=== PATIENT | female | born 1990 | race Caucasian/White ===

== ENCOUNTER 2017-02-15 16:33 | Emergency (ER) | payer OTHER ==
[2017-02-15] MEDS ORDERED: SODIUM CHLORIDE 0.9% 1,000 ML IV STA (17:06)
--- NOTE | 2017-02-15 17:15 | ED ---
General Adult HPI - General Source: patient, EMS, RN notes reviewed, old records reviewed Mode of arrival: EMS Limitations: no limitations <Loreto Martin - Last Filed: 02/15/17 18:53> <Ihsan Ruiz - Last Filed: 02/15/17 19:46> - General Chief complaint: Anxiety Stated complaint: Anxiety Time Seen by Provider: 02/15/17 16:57 - History of Present Illness Initial comments: This is a 26-year-old female presenting to the emergency department with chief complaint of right arm and hand numbness and tingling that started approximately an hour ago. Patient reports that she takes at her nurse friend who is known the emergency department with her. Patient reports that she is currently 20 weeks . Patient's friend states that when she got to her house she started have word salad and was unable to have an intelligible conversation. Patient friend states that she is slowly coming out of it. She does state that she seems to be anxious. She denies any headache, chest pain or shortness of breath. She reports that she does not have any further numbness or tingling in her hand at this time. Patient reports that she is currently 20 weeks in her third . She states that she's had previous Occasions with around this time and believes that she seems to be anxious. (Loreto Martin) - Related Data Home Medications Medication Instructions Recorded Confirmed No Known Home Medications [No 02/15/17 02/15/17 Known Home Medications] Allergies Allergy/AdvReac Type Severity Reaction Status Date / Time erythromycin base Allergy Nausea & Verified 02/15/17 17:55 Vomiting Review of Systems ROS Other: All systems not noted in ROS Statement are negative. <Loreto Martin - Last Filed: 02/15/17 18:53> ROS Other: All systems not noted in ROS Statement are negative. <Ihsan Ruiz - Last Filed: 02/15/17 19:46> ROS Statement: Those systems with pertinent positive or pertinent negative responses have been documented in the HPI. Past Medical History Past Medical History: No Reported History History of Any Multi-Drug Resistant Organisms: None Reported Past Surgical History: No Surgical Hx Reported Past Anesthesia/Blood Transfusion Reactions: No Reported Reaction Past Psychological History: Anxiety, Depression Smoking Status: Never smoker Past Alcohol Use History: None Reported Past Drug Use History: None Reported - Past Family History Mother Family Medical History: No Reported History <Tash Martinily - Last Filed: 02/15/17 18:53> General Exam Limitations: no limitations General appearance: alert, in no apparent distress Head exam: Present: atraumatic, normocephalic, normal inspection Eye exam: Present: normal appearance, PERRL, EOMI. Absent: scleral icterus, conjunctival injection, periorbital swelling ENT exam: Present: normal exam, mucous membranes moist Neck exam: Present: normal inspection. Absent: tenderness, meningismus, lymphadenopathy Respiratory exam: Present: normal lung sounds bilaterally. Absent: respiratory distress, wheezes, rales, rhonchi, stridor Cardiovascular Exam: Present: regular rate, normal rhythm, normal heart sounds. Absent: systolic murmur, diastolic murmur, rubs, gallop, clicks GI/Abdominal exam: Present: soft, normal bowel sounds. Absent: distended, tenderness, guarding, rebound, rigid Extremities exam: Present: normal inspection, full ROM, normal capillary refill. Absent: tenderness, pedal edema, joint swelling, calf tenderness Back exam: Present: normal inspection Neurological exam: Present: alert, oriented X3, CN II-XII intact Expanded Patient oriented to: Present: person, place, time Speech: Present: anomia (Patient is having word finding difficulty.). Absent: fluid speech Cranial nerves: EOM's Intact: Normal, Gag Reflex: Normal, Tongue Deviation: Normal, Facial Sensation: Normal Cerebellar function: Finger to Nose: Normal Upper motor neuron: Pronator Drift: Normal Sensory exam: Upper Extremity Light Touch: Normal, Lower Extremity Light Touch: Normal Motor strength exam: RUE: 5, LUE: 5, RLE: 5, LLE: 5 Eye Response: (4) open spontaneously Motor Response: (6) obeys commands Verbal Response: (5) oriented Danny Total: 15 Psychiatric exam: Present: normal affect, normal mood Skin exam: Present: warm, dry, intact, normal color. Absent: rash <Loreto Martin - Last Filed: 02/15/17 18:53> <Ihsan Ruiz - Last Filed: 02/15/17 19:46> - General Exam Comments Initial Comments: 26-year-old female. Patient does appear to be somewhat anxious. (Loreto Martin) Course <Loreto Martin - Last Filed: 02/15/17 18:53> <Ihsan Ruiz - Last Filed: 02/15/17 19:46> Vital Signs 02/15/17 02/15/17 02/15/17 16:35 17:35 18:59 Temperature 97.9 F 98 F Pulse Rate 99 80 80 Respiratory 22 20 20 Rate Blood Pressure 128/81 120/70 115/61 O2 Sat by Pulse 99 99 99 Oximetry - Reevaluation(s) Reevaluation #1: 02/15/17 18:53 Patient was reevaluated and reports that she is much improved. Patient states that she has no headache and is having a normal conversation. She states that she feels 100% better at this time. Because of this is likely related to anxiety. Return parameters were discussed. 02/15/17 18:53 (Loreto Martin) Medical Decision Making - Lab Data Result diagrams: 02/15/17 17:34 02/15/17 17:34 <Loreto Martin - Last Filed: 02/15/17 18:53> - Lab Data Result diagrams: 02/15/17 17:34 02/15/17 17:34 <Ihsan Ruiz - Last Filed: 02/15/17 19:46> - Medical Decision Making 26-year-old female presents the ED chief complaint of numbness and tingling bilateral arms which is shortly resolved, and difficulty with word recognition and slow to respond. Patient states that she has been more anxious lately and she is 20 weeks . Patient is friend reports that she was initially having some word salad. Patient didn't have any focal neurological deficits. Patient appears to be somewhat slow in responding. Patient's NIH scale is 0. Patient's heart tones were 164 and regular. Her BRAID FOLDER is Dr. Healy. This was discussed with Dr. Ruiz. Patient is reevaluated and all symptoms have resolved. Patient is responding normally at this time. Patient has been advised to follow-up with her BRAID FOLDER. We did consult neurology and the on-call BRAID FOLDER doctor neighbor. They agreed patient's symptoms are likely related to anxiety. Patient will be discharged at this time and advised follow-up with her BRAID FOLDER. Return parameters were discussed. (Loreto Martin) 26-year-old female who is currently 20 weeks presenting with bilateral upper extremity numbness and tingling. This was resolved prior to arrival. Symptoms began approximately one hour prior to getting to the emergency department. She was noted by her friends and to have word finding difficulty and some confusion. Patient was anxious at the time. Laboratory studies were reviewed and are unremarkable including normal electrolytes, no signs of urinary tract infection, CBC is unremarkable, heart tones are normal. Case is discussed with OB on-call and is agrees this is likely related to anxiety. Case was also discussed with neurology on-call and given her status and inconsistent exam and findings no further testing will be required at this time. On reevaluation patient's symptoms have completely resolved. She has no headache. She has no chest pain or shortness of breath, speech is normal, neurologic exam is nonfocal. NIH is 0. She is encouraged to follow up with her BRAID FOLDER and if symptoms return she is encouraged to return to the emergency department. Symptoms likely related to anxiety. (Ihsan Ruiz) - Lab Data Lab Results 02/15/17 02/15/17 02/15/17 Range/Units 17:34 17:34 17:34 WBC 5.6 (3.8-10.6) k/uL RBC 3.76 L (3.80-5.40) m/uL Hgb 11.8 (11.4-16.0) gm/dL Hct 32.1 L (34.0-46.0) % MCV 85.3 (80.0-100.0) fL MCH 31.4 (25.0-35.0) pg MCHC 36.8 (31.0-37.0) g/dL RDW 14.5 (11.5-15.5) % Plt Count 168 (150-450) k/uL Neutrophils % 66 % Lymphocytes % 27 % Monocytes % 4 % Eosinophils % 1 % Basophils % 0 % Neutrophils # 3.7 (1.3-7.7) k/uL Lymphocytes # 1.5 (1.0-4.8) k/uL Monocytes # 0.2 (0-1.0) k/uL Eosinophils # 0.1 (0-0.7) k/uL Basophils # 0.0 (0-0.2) k/uL PT (9.0-12.0) sec INR (<1.1) APTT (22.0-30.0) sec Sodium 138 (137-145) mmol/L Potassium 3.7 (3.5-5.1) mmol/L Chloride 108 H (98-107) mmol/L Carbon Dioxide 21 L (22-30) mmol/L Anion Gap 9 mmol/L BUN 9 (7-17) mg/dL Creatinine 0.60 (0.52-1.04) mg/dL Est GFR (MDRD) Af Amer >60 (>60 ml/min/1.73 sqM) Est GFR (MDRD) Non-Af >60 (>60 ml/min/1.73 sqM) Glucose 92 (74-99) mg/dL Calcium 9.0 (8.4-10.2) mg/dL Total Bilirubin 0.3 (0.2-1.3) mg/dL AST 17 (14-36) U/L ALT 25 (9-52) U/L Alkaline Phosphatase 61 (38-126) U/L Total Creatine Kinase 35 (30-135) U/L CK-MB (CK-2) <0.2 (0.0-2.4) ng/mL CK-MB (CK-2) Rel Index Troponin I <0.012 (0.000-0.034) ng/mL Total Protein 6.4 (6.3-8.2) g/dL Albumin 3.7 (3.5-5.0) g/dL Urine Color Urine Appearance (Clear) Urine pH (5.0-8.0) Ur Specific [place] (1.001-1.035) Urine Protein (Negative) Urine Glucose (UA) (Negative) Urine Ketones (Negative) Urine Blood (Negative) Urine Nitrite (Negative) Urine Bilirubin (Negative) Urine Urobilinogen (<2.0) mg/dL Ur Leukocyte Esterase (Negative) Urine Opiates Screen (NotDetected) Ur Oxycodone Screen (NotDetected) Urine Methadone Screen (NotDetected) Ur Propoxyphene Screen (NotDetected) Ur Barbiturates Screen (NotDetected) U Tricyclic Antidepress (NotDetected) Ur Phencyclidine Scrn (NotDetected) Ur Amphetamines Screen (NotDetected) U Methamphetamines Scrn (NotDetected) U Benzodiazepines Scrn (NotDetected) Urine Cocaine Screen (NotDetected) U Marijuana (THC) Screen (NotDetected) 02/15/17 02/15/17 Range/Units 17:34 17:50 WBC (3.8-10.6) k/uL RBC (3.80-5.40) m/uL Hgb (11.4-16.0) gm/dL Hct (34.0-46.0) % MCV (80.0-100.0) fL MCH (25.0-35.0) pg MCHC (31.0-37.0) g/dL RDW (11.5-15.5) % Plt Count (150-450) k/uL Neutrophils % % Lymphocytes % % Monocytes % % Eosinophils % % Basophils % % Neutrophils # (1.3-7.7) k/uL Lymphocytes # (1.0-4.8) k/uL Monocytes # (0-1.0) k/uL Eosinophils # (0-0.7) k/uL Basophils # (0-0.2) k/uL PT 9.8 (9.0-12.0) sec INR 1.0 (<1.1) APTT 22.4 (22.0-30.0) sec Sodium (137-145) mmol/L Potassium (3.5-5.1) mmol/L Chloride (98-107) mmol/L Carbon Dioxide (22-30) mmol/L Anion Gap mmol/L BUN (7-17) mg/dL Creatinine (0.52-1.04) mg/dL Est GFR (MDRD) Af Amer (>60 ml/min/1.73 sqM) Est GFR (MDRD) Non-Af (>60 ml/min/1.73 sqM) Glucose (74-99) mg/dL Calcium (8.4-10.2) mg/dL Total Bilirubin (0.2-1.3) mg/dL AST (14-36) U/L ALT (9-52) U/L Alkaline Phosphatase (38-126) U/L Total Creatine Kinase (30-135) U/L CK-MB (CK-2) (0.0-2.4) ng/mL CK-MB (CK-2) Rel Index Troponin I (0.000-0.034) ng/mL Total Protein (6.3-8.2) g/dL Albumin (3.5-5.0) g/dL Urine Color Yellow Urine Appearance Clear (Clear) Urine pH 6.0 (5.0-8.0) Ur Specific [place] 1.019 (1.001-1.035) Urine Protein Trace H (Negative) Urine Glucose (UA) Negative (Negative) Urine Ketones Negative (Negative) Urine Blood Negative (Negative) Urine Nitrite Negative (Negative) Urine Bilirubin Negative (Negative) Urine Urobilinogen <2.0 (<2.0) mg/dL Ur Leukocyte Esterase Negative (Negative) Urine Opiates Screen Not Detected (NotDetected) Ur Oxycodone Screen Not Detected (NotDetected) Urine Methadone Screen Not Detected (NotDetected) Ur Propoxyphene Screen Not Detected (NotDetected) Ur Barbiturates Screen Not Detected (NotDetected) U Tricyclic Antidepress Not Detected (NotDetected) Ur Phencyclidine Scrn Not Detected (NotDetected) Ur Amphetamines Screen Not Detected (NotDetected) U Methamphetamines Scrn Not Detected (NotDetected) U Benzodiazepines Scrn Not Detected (NotDetected) Urine Cocaine Screen Not Detected (NotDetected) U Marijuana (THC) Screen Not Detected (NotDetected) 02/15/17 18:10 EKG shows normal sinus rhythm. Ventricular rate of 79 bpm. AR interval 134 ms. QRS duration 76 no seconds. QT QTC 374/420 ms. No evidence of ST elevation or T-wave inversion. (Loreto Martin) Disposition Time of Disposition: 18:46 <Loreto Martin - Last Filed: 02/15/17 18:53> <Ihsan Ruiz - Last Filed: 02/15/17 19:46> Clinical Impression: Anxiety, Paresthesia of arm, Acute confusional state Disposition: HOME SELF-CARE Condition: Good Instructions: Generalized Anxiety Disorder (ED) Additional Instructions: Patient advised to follow-up with her BRAID FOLDER and primary care physician. Patient denies to relax and take deep breaths. Patient should return if there are any alarming signs or symptoms that occur. Referrals: None,Stated [Primary Care Provider] - 1-2 days Jackson Healy DO [REFERRING] - 1-2 days
[2017-02-15 17:43] LABS: Basophils % (A) 0 %; CH 31.2; CHCM 36.8; Eosinophils # (A) 0.1 k/uL (0-0.7); Eosinophils % (A) 1 %; HCT 32.1 % (34.0-46.0); HDW 3.17; HGB 11.8 gm/dL (11.4-16.0); Luc % (Auto) 2; Lymphocytes # (A) 1.5 k/uL (1.0-4.8); Lymphocytes % (A) 27 %; MCH 31.4 pg (25.0-35.0); MCHC 36.8 g/dL (31.0-37.0); MCV 85.3 fL (80.0-100.0); Mean Platelet Volume 6.9; Monocytes # (A) 0.2 k/uL (0-1.0); Monocytes % (A) 4 %; Neutrophils # (A) 3.7 k/uL (1.3-7.7); Neutrophils % (A) 66 %; RBC 3.76 m/uL (3.80-5.40); RDW 14.5 % (11.5-15.5); WBC 5.6 k/uL (3.8-10.6); WBC (Perox) 5.96
[2017-02-15 17:54] LABS: ALT 25 U/L (9-52); AST 17 U/L (14-36); Alkaline Phosphatase 61 U/L (38-126); Anion Gap 9 mmol/L; Blood Urea Nitrogen 9 mg/dL (7-17); Carbon Dioxide 21 mmol/L (22-30); Chloride 108 mmol/L (98-107); Glucose 92 mg/dL (74-99); Non-African American GFR(MDRD) >60 (>60 ml/min/1.73 sqM); Potassium 3.7 mmol/L (3.5-5.1); Sodium 138 mmol/L (137-145); Total Bilirubin 0.3 mg/dL (0.2-1.3); Total Protein 6.4 g/dL (6.3-8.2)
[2017-02-15 17:55] LABS: Partial Thromboplastin Time 22.4 sec (22.0-30.0); Prothrombin Time 9.8 sec (9.0-12.0)
[2017-02-15 18:05] LABS: Creatine Kinase 35 U/L (30-135)
[2017-02-15 18:14] LABS: Appearance,Urine Clear (Clear); Bilirubin,Urine Negative (Negative); Glucose,Urine (UA) Negative (Negative); Ketones,Urine Negative (Negative); Leukocyte Esterase,Urine Negative (Negative); Nitrite,Urine Negative (Negative); Protein,Urine Trace (Negative); Specific Gravity,Urine 1.019 (1.001-1.035); UA Billing (MACRO vs. MICRO) CHEM; Urobilinogen,Urine <2.0 mg/dL (<2.0)
[2017-02-15 18:17] LABS: Creatine Kinase MB <0.2 ng/mL (0.0-2.4); Troponin I <0.012 ng/mL (0.000-0.034)
[2017-02-15 19:00] VITALS: PULSE 80; RESP 20
[2017-02-15 19:01] VITALS: BP 115/61; TEMP 98
== END 2017-02-15 19:02 | disposition home or self-care (01) ==
LOC: EC 16:33
DX: O99.342 Other mental disorders complicating pregnancy, second trimester (principal); O99.89 Other specified diseases and conditions complicating pregnancy, childbirth and the puerperium; F41.9 Anxiety disorder, unspecified; R20.2 Paresthesia of skin; R41.0 Disorientation, unspecified; Z3A.20 20 weeks gestation of pregnancy; Z88.1 Allergy status to other antibiotic agents
CPT/HCPCS: 36415; 80053; 80306; 81003; 82550; 82553; 84484; 85025; 85610; 85730; 93005; 96360; 99285

== ENCOUNTER 2017-02-18 11:12 | Emergency (ER) | payer OTHER ==
[2017-02-18] MEDS ORDERED: SODIUM CHLORIDE 0.9% 1,000 ML IV STA (11:29)
[2017-02-18 11:53] LABS: Appearance,Urine Clear (Clear); Basophils % (A) 0 %; Bilirubin,Urine Negative (Negative); CH 30.9; CHCM 36.1; Eosinophils # (A) 0.1 k/uL (0-0.7); Eosinophils % (A) 2 %; Glucose,Urine (UA) Negative (Negative); HCT 31.6 % (34.0-46.0); HGB 11.4 gm/dL (11.4-16.0); Ketones,Urine Negative (Negative); Leukocyte Esterase,Urine Negative (Negative); Luc # (Auto) 0.16; Luc % (Auto) 3; Lymphocytes # (A) 1.5 k/uL (1.0-4.8); Lymphocytes % (A) 30 %; MCH 31.1 pg (25.0-35.0); MCHC 36.2 g/dL (31.0-37.0); MCV 86.1 fL (80.0-100.0); Mean Platelet Volume 6.8; Monocytes # (A) 0.3 k/uL (0-1.0); Monocytes % (A) 5 %; Neutrophils % (A) 59 %; Nitrite,Urine Negative (Negative); Protein,Urine Negative (Negative); RBC 3.67 m/uL (3.80-5.40); RDW 14.1 % (11.5-15.5); Specific Gravity,Urine 1.001 (1.001-1.035); UA Billing (MACRO vs. MICRO) CHEM; Urobilinogen,Urine <2.0 mg/dL (<2.0); WBC (Perox) 5.05
--- NOTE | 2017-02-18 11:54 | ED ---
General Adult HPI - General Chief complaint: Neuro Symptoms/Deficit Stated complaint: Weakness Time Seen by Provider: 02/18/17 11:14 Source: patient, EMS, RN notes reviewed, old records reviewed Mode of arrival: EMS Limitations: no limitations - History of Present Illness Initial comments: This is a 26-year-old female ER for evaluation. This patient presents for evaluation regarding neurological complaints. Patient is , this is her third she is a G 3P2. Patient is about 21 weeks , she has follow-up with OB currently. Patient states she has an was recently in the hospital for some right arm tingling and numbness 3 days ago, today she had left arm numbness and tingling. Denies any increased stress in her life. No headache. No and no other neurological complaint, symptoms have completely resolved. Patient states she may have had difficulty findings words during conversation but that has resolved. No trauma. No dysuria, eating and gaining weight appropriately - Related Data Home Medications Medication Instructions Recorded Confirmed No Known Home Medications [No 02/15/17 02/18/17 Known Home Medications] Allergies Allergy/AdvReac Type Severity Reaction Status Date / Time erythromycin base Allergy Nausea & Verified 02/18/17 11:22 Vomiting Review of Systems ROS Statement: Those systems with pertinent positive or pertinent negative responses have been documented in the HPI. ROS Other: All systems not noted in ROS Statement are negative. Past Medical History Past Medical History: No Reported History History of Any Multi-Drug Resistant Organisms: None Reported Past Surgical History: No Surgical Hx Reported Past Anesthesia/Blood Transfusion Reactions: No Reported Reaction Past Psychological History: Anxiety, Depression Smoking Status: Never smoker Past Alcohol Use History: None Reported Past Drug Use History: None Reported - Past Family History Mother Family Medical History: No Reported History General Exam - General Exam Comments Initial Comments: NIH of 0 Limitations: no limitations General appearance: alert, in no apparent distress Head exam: Present: atraumatic, normocephalic, normal inspection Eye exam: Present: normal appearance, PERRL, EOMI. Absent: scleral icterus, conjunctival injection, periorbital swelling ENT exam: Present: normal exam, mucous membranes moist Neck exam: Present: normal inspection. Absent: tenderness, meningismus, lymphadenopathy Respiratory exam: Present: normal lung sounds bilaterally. Absent: respiratory distress, wheezes, rales, rhonchi, stridor Cardiovascular Exam: Present: regular rate, normal rhythm, normal heart sounds. Absent: systolic murmur, diastolic murmur, rubs, gallop, clicks GI/Abdominal exam: Present: soft, normal bowel sounds. Absent: distended, tenderness, guarding, rebound, rigid Extremities exam: Present: normal inspection, full ROM, normal capillary refill. Absent: tenderness, pedal edema, joint swelling, calf tenderness Back exam: Present: normal inspection Neurological exam: Present: alert, oriented X3, CN II-XII intact Psychiatric exam: Present: normal affect, normal mood Skin exam: Present: warm, dry, intact, normal color. Absent: rash Course Vital Signs 02/18/17 11:20 Temperature 97.7 F Pulse Rate 85 Respiratory 18 Rate Blood Pressure 117/63 O2 Sat by Pulse 100 Oximetry - Reevaluation(s) Reevaluation #1: 02/18/17 12:42 Patient's neurological symptoms remain resolved Medical Decision Making - Medical Decision Making 26 female to the ED co left arm paresthesia, patient is 20 weeks , no vaginal symptoms no bleeding no abdominal pain, eating and drinking appropriately. Getting weight appropriately. Patient does have no neurological symptoms at this time, a symptomatically can be discharged home - Lab Data Result diagrams: 02/18/17 11:17 02/18/17 11:17 Lab Results 02/18/17 02/18/17 02/18/17 Range/Units 11:17 11:17 11:17 WBC 5.0 (3.8-10.6) k/uL RBC 3.67 L (3.80-5.40) m/uL Hgb 11.4 (11.4-16.0) gm/dL Hct 31.6 L (34.0-46.0) % MCV 86.1 (80.0-100.0) fL MCH 31.1 (25.0-35.0) pg MCHC 36.2 (31.0-37.0) g/dL RDW 14.1 (11.5-15.5) % Plt Count 158 (150-450) k/uL Neutrophils % 59 % Lymphocytes % 30 % Monocytes % 5 % Eosinophils % 2 % Basophils % 0 % Neutrophils # 3.0 (1.3-7.7) k/uL Lymphocytes # 1.5 (1.0-4.8) k/uL Monocytes # 0.3 (0-1.0) k/uL Eosinophils # 0.1 (0-0.7) k/uL Basophils # 0.0 (0-0.2) k/uL PT (9.0-12.0) sec INR (<1.1) APTT (22.0-30.0) sec Sodium 137 (137-145) mmol/L Potassium 4.1 (3.5-5.1) mmol/L Chloride 108 H (98-107) mmol/L Carbon Dioxide 19 L (22-30) mmol/L Anion Gap 10 mmol/L BUN 9 (7-17) mg/dL Creatinine 0.55 (0.52-1.04) mg/dL Est GFR (MDRD) Af Amer >60 (>60 ml/min/1.73 sqM) Est GFR (MDRD) Non-Af >60 (>60 ml/min/1.73 sqM) Glucose 79 (74-99) mg/dL Calcium 8.8 (8.4-10.2) mg/dL Phosphorus 3.7 (2.5-4.5) mg/dL Magnesium 1.8 (1.6-2.3) mg/dL Total Bilirubin 0.5 (0.2-1.3) mg/dL AST 15 (14-36) U/L ALT 20 (9-52) U/L Alkaline Phosphatase 55 (38-126) U/L Total Creatine Kinase 29 L (30-135) U/L CK-MB (CK-2) <0.2 (0.0-2.4) ng/mL CK-MB (CK-2) Rel Index Troponin I <0.012 (0.000-0.034) ng/mL Total Protein 6.5 (6.3-8.2) g/dL Albumin 3.6 (3.5-5.0) g/dL Urine Color Urine Appearance (Clear) Urine pH (5.0-8.0) Ur Specific [place] (1.001-1.035) Urine Protein (Negative) Urine Glucose (UA) (Negative) Urine Ketones (Negative) Urine Blood (Negative) Urine Nitrite (Negative) Urine Bilirubin (Negative) Urine Urobilinogen (<2.0) mg/dL Ur Leukocyte Esterase (Negative) 07/04/17 07/04/17 Range/Units 11:17 11:17 WBC (3.8-10.6) k/uL RBC (3.80-5.40) m/uL Hgb (11.4-16.0) gm/dL Hct (34.0-46.0) % MCV (80.0-100.0) fL MCH (25.0-35.0) pg MCHC (31.0-37.0) g/dL RDW (11.5-15.5) % Plt Count (150-450) k/uL Neutrophils % % Lymphocytes % % Monocytes % % Eosinophils % % Basophils % % Neutrophils # (1.3-7.7) k/uL Lymphocytes # (1.0-4.8) k/uL Monocytes # (0-1.0) k/uL Eosinophils # (0-0.7) k/uL Basophils # (0-0.2) k/uL PT 9.7 (9.0-12.0) sec INR 0.9 (<1.1) APTT 22.3 (22.0-30.0) sec Sodium (137-145) mmol/L Potassium (3.5-5.1) mmol/L Chloride (98-107) mmol/L Carbon Dioxide (22-30) mmol/L Anion Gap mmol/L BUN (7-17) mg/dL Creatinine (0.52-1.04) mg/dL Est GFR (MDRD) Af Amer (>60 ml/min/1.73 sqM) Est GFR (MDRD) Non-Af (>60 ml/min/1.73 sqM) Glucose (74-99) mg/dL Calcium (8.4-10.2) mg/dL Phosphorus (2.5-4.5) mg/dL Magnesium (1.6-2.3) mg/dL Total Bilirubin (0.2-1.3) mg/dL AST (14-36) U/L ALT (9-52) U/L Alkaline Phosphatase (38-126) U/L Total Creatine Kinase (30-135) U/L CK-MB (CK-2) (0.0-2.4) ng/mL CK-MB (CK-2) Rel Index Troponin I (0.000-0.034) ng/mL Total Protein (6.3-8.2) g/dL Albumin (3.5-5.0) g/dL Urine Color Colorless Urine Appearance Clear (Clear) Urine pH 7.0 (5.0-8.0) Ur Specific [place] 1.001 (1.001-1.035) Urine Protein Negative (Negative) Urine Glucose (UA) Negative (Negative) Urine Ketones Negative (Negative) Urine Blood Negative (Negative) Urine Nitrite Negative (Negative) Urine Bilirubin Negative (Negative) Urine Urobilinogen <2.0 (<2.0) mg/dL Ur Leukocyte Esterase Negative (Negative) - Radiology Data Radiology results: report reviewed (Ultrasound shows positive IUP), image reviewed Disposition Clinical Impression: Neuralgia, Paresthesia Disposition: HOME SELF-CARE Condition: Good Instructions: Paresthesia (ED) Referrals: Tano Schmidt MD [Primary Care Provider] - 1-2 days
[2017-02-18 12:02] LABS: ALT 20 U/L (9-52); AST 15 U/L (14-36); Alkaline Phosphatase 55 U/L (38-126); Anion Gap 10 mmol/L; Blood Urea Nitrogen 9 mg/dL (7-17); Calcium 8.8 mg/dL (8.4-10.2); Carbon Dioxide 19 mmol/L (22-30); Chloride 108 mmol/L (98-107); Glucose 79 mg/dL (74-99); Magnesium 1.8 mg/dL (1.6-2.3); Non-African American GFR(MDRD) >60 (>60 ml/min/1.73 sqM); Phosphorous 3.7 mg/dL (2.5-4.5); Potassium 4.1 mmol/L (3.5-5.1); Sodium 137 mmol/L (137-145); Total Bilirubin 0.5 mg/dL (0.2-1.3); Total Protein 6.5 g/dL (6.3-8.2)
[2017-02-18 12:04] LABS: INR 0.9 (<1.1); Prothrombin Time 9.7 sec (9.0-12.0)
[2017-02-18 12:12] LABS: Creatine Kinase 29 U/L (30-135)
[2017-02-18 12:15] LABS: Partial Thromboplastin Time 22.3 sec (22.0-30.0)
[2017-02-18 12:25] LABS: Creatine Kinase MB <0.2 ng/mL (0.0-2.4); Troponin I <0.012 ng/mL (0.000-0.034)
--- NOTE | 2017-02-18 12:35 | US ---
EXAMINATION TYPE: US OB >= 14 wk fetus DATE OF EXAM: 02/18/2017 COMPARISON: None CLINICAL HISTORY: Pain2 episodes of weakness and slurred speech in the past week, 3, para 2 TECHNIQUE: Transabdominal (TA) GESTATIONAL AGE / DATING Physician Established: (20 weeks/4 days) EDC: 07/04/2017 Dates by LMP: (20 weeks/4 days) EDC: 07/04/2017 Dates by First Scan: No previous Dates by Current Scan: (20 weeks/5 days) EDC: 07/03/2017 SURVEY IUP: Single PLACENTA: Anterior PREVIA: No Previa YOSHI: 12.3 cm Normal CERVICAL LENGTH (transabdominal: norm > 3.0cm): 3.1 cm BIOMETRY PRESENTATION: Vertex LIE: Longitudinal BPD: 5.0 cm 21 weeks / 0 days HC: 18.3 cm 20 weeks / 4 days AC: 16.0 cm 21 weeks / 0 days FL: 3.5 cm 21 weeks / 0 days ESTIMATED WEIGHT IN GRAMS: 393.3 grams ESTIMATED WEIGHT IN LBS/OZS: 0 lbs. 14 oz. WEIGHT PERCENTAGE BASED ON ESTABLISHED DATES: 70% HC/AC: 1.14 Normal FL/AC: 21.94 HEART RATE: 152 bpm RHYTHM: Normal Viable single IUP measuring 20 weeks 5 days with a heart rate of 152bpm and an estimated delivery lelia e of 07/03/2017. IMPRESSION: The ultrasound gestational age is 20 weeks 5 days. I see no complicating process.
[2017-02-18 12:47] VITALS: BP 90/54; PULSE 83; RESP 15; TEMP 97.1
== END 2017-02-18 13:02 | disposition home or self-care (01) ==
LOC: EC 11:12
DX: O99.89 Other specified diseases and conditions complicating pregnancy, childbirth and the puerperium (principal); M79.2 Neuralgia and neuritis, unspecified; R20.2 Paresthesia of skin; Z3A.20 20 weeks gestation of pregnancy; Z88.1 Allergy status to other antibiotic agents
CPT/HCPCS: 36415; 76805; 80053; 81003; 82550; 82553; 83735; 84100; 84484; 85025; 85610; 85730; 87086; 96360; 99285

== ENCOUNTER 2017-10-26 22:53 | Emergency (ER) | payer OTHER ==
[2017-10-26 22:58] VITALS: RESP 18
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
[2017-10-27 01:01] VITALS: BP 116/74; PULSE 117; TEMP 97.6
--- NOTE | 2017-10-27 01:09 | XR ---
EXAMINATION TYPE: XR hand complete RT DATE OF EXAM: 10/27/2017 COMPARISON: NONE HISTORY: Pain TECHNIQUE: 3 views FINDINGS: I see no fracture nor dislocation. Joint spaces are normal. Metacarpals appear intact. IMPRESSION: Negative right hand exam.
== END 2017-10-27 01:03 | disposition home or self-care (01) ==
LOC: EC 22:53
DX: S51.851A Open bite of right forearm, initial encounter (principal); F41.9 Anxiety disorder, unspecified; F32.9 Major depressive disorder, single episode, unspecified; Z79.899 Other long term (current) drug therapy; Z88.1 Allergy status to other antibiotic agents; Y04.1XXA Assault by human bite, initial encounter; Y07.9 Unspecified perpetrator of maltreatment and neglect
CPT/HCPCS: 99283

== ENCOUNTER 2019-04-21 08:02 | Emergency (ER) | payer OTHER ==
--- NOTE | 2019-04-21 08:12 | ED ---
Head Injury HPI - General Chief complaint: Head Injury Stated complaint: fall, head injury Time Seen by Provider: 04/21/19 08:07 Source: patient Mode of arrival: ambulatory Limitations: no limitations - History of Present Illness Initial comments: 28yo female presenting today for chief complaint of fall. Patient is currently roughly 7 weeks . Patient states that she was walking this morning around 7:40 AM when she was carrying her dog she lost her balance falling down 4 steps hitting the back of her head. Patient denies any neck or back pain. Patient states she has a lump on the right side of her head, as well as a headache. Patient states she is unsure she lost consciousness. She states she does report falling. Patient states she does have some nausea she is not sure if it is related to or from the fall. Patient denies vomiting dizziness, double vision, weakness of the upper or lower extremities or sensation deficits. Patient denies any lacerations or abrasions. Patient states she had no abdominal trauma denies any abdominal pain or vaginal bleeding. Remaining review of systems negative. Upon arrival patient appears well no sign of acute distress. Holding ice over the right side of her scalp. - Related Data Home Medications Medication Instructions Recorded Confirmed No Known Home Medications 04/21/19 04/21/19 Allergies/Adverse reactions: Allergies Allergy/AdvReac Type Severity Reaction Status Date / Time erythromycin base AdvReac Nausea & Verified 04/21/19 08:16 Vomiting Review of Systems ROS Statement: Those systems with pertinent positive or pertinent negative responses have been documented in the HPI. ROS Other: All systems not noted in ROS Statement are negative. Past Medical History Past Medical History: No Reported History History of Any Multi-Drug Resistant Organisms: None Reported Past Surgical History: No Surgical Hx Reported Past Anesthesia/Blood Transfusion Reactions: No Reported Reaction Past Psychological History: No Psychological Hx Reported, Anxiety, Depression Smoking Status: Never smoker Past Alcohol Use History: Occasional Past Drug Use History: None Reported - Past Family History Mother Family Medical History: No Reported History General Exam - General Exam Comments Initial Comments: General: The patient is awake and alert, in no distress, and does not appear acutely ill. Eye: +3 mm pupils are equal, round and reactive to light, extra-ocular movem ents are intact. No nystagmus. There is normal conjunctiva bilaterally. No signs of icterus. Ears, nose, mouth and throat: There are moist mucous membranes and no oral l esions. No raccoon or Cintron sign. No midline tenderness to patient the cervical thoracic or lumbar spine. Normal inspection. Cardiovascular: There is a regular rate and rhythm. No murmur, rub or gallop is appreciated. Respiratory: Lungs are clear to auscultation, respirations are non-labored, breath sounds are equal. No wheezes, stridor, rales, or rhonchi. Gastrointestinal: Soft, non-distended, non-tender abdomen without masses or organomegaly noted. There is no rebound or guarding present. Musculoskeletal: Normal ROM, no tenderness. Strength 5/5. Sensation intact. Radial pulses equal bilaterally 2+. Neurological: A&O x 3. CN II-XII intact, There are no obvious motor or sensory deficits. Coordination appears grossly intact. Speech is normal. Skin: Skin is warm and dry and no rashes. Palpable scalp hematoma on the right parietal luster aspect. No crepitus to facial scalp. No evidence of laceration or abrasion. Psychiatric: Cooperative, appropriate mood & affect, normal judgment. Limitations: no limitations Course Vital Signs 04/21/19 04/21/19 08:06 09:20 Temperature 98.2 F 97.6 F Pulse Rate 78 67 Respiratory 18 16 Rate Blood Pressure 122/78 121/77 O2 Sat by Pulse 95 98 Oximetry Medical Decision Making - Medical Decision Making 28yo female presents today for chief complaint of fall with head injury x 1 hour prior to arrival. Patient has a parietal scalp hematoma. No crepitus. No noted focal neurological deficits. Patient appears well. No abdominal complaints. Patient is 7 weeks . No abdominal complaints. No tenderness on abdominal exam. Patient had ice on hematoma. CT of the brain and C-spine were obtained to assure decision-making. No acute osseous process or intracranial process. At this time. Patient most likely has headache and symptoms per patient was given Tylenol emergency department. Return parameters were discussed patient verbalizes understanding I discuss with patient concussion protocols. Discussed case wtih > thaddeus. Pt discharge appearing well. Disposition Clinical Impression: Concussion, Scalp hematoma, Headache, Fall Disposition: HOME SELF-CARE Condition: Good Instructions (If sedation given, give patient instructions): Concussion (ED) Additional Instructions: Please use medication as discussed. Please follow-up with family doctor in the next 2 days. No contact sports or activities that have increased risk of head injury. Please return to emergency room if the symptoms increase or worsen or for any other concerns. Is patient prescribed a controlled substance at d/c from ED?: No Referrals: None,Stated [Primary Care Provider] - 1-2 days Time of Disposition: 09:08
[2019-04-21] MEDS ORDERED: ACETAMINOPHEN TAB 325 MG TAB PO STA (08:26)
--- NOTE | 2019-04-21 09:01 | CT ---
EXAMINATION TYPE: CT brain cspine wo con DATE OF EXAM: 04/21/2019 COMPARISON: None HISTORY: Fall, possible LOC CT DLP: 1174.1 mGycm, Automated exposure control for dose reduction was used. CONTRAST: None CT of the brain is performed utilizing 3 mm thick sections through the posterior fossa and 3 mm thick sections through the remaining calvarium. Patient is and was aware of the radiation exposu re risks. Study is performed within 24 hours of arrival to the hospital. No abnormal hyperdensity is present to suggest an acute intracranial hemorrhage. No mass lesion is evident. No acute infarcts are evident. Ventricles and sulci are appropriate for the patient age. Minimal soft tissue swelling is over the right parietal region. No underlying fractures are evident. Paranasal sinuses and mastoid air cells within the [id number] are clear. IMPRESSIONS: 1. Normal CT brain. CT cervical spine. COMPARISON: None CT of the cervical spine is performed in the axial plane at 2 mm thick sections. Reconstructed image s in the coronal, and sagittal plane are reviewed on the computer. No acute fractures are evident. Vertebral body alignment is normal. Disc heights are preserved. Vertebral body heights are preserved. No spinal canal stenosis is evident. No neural foraminal stenosis is evident. IMPRESSIONS: 1. Normal CT cervical spine.
[2019-04-21 09:24] VITALS: BP 121/77; PULSE 67; RESP 16; TEMP 97.6
== END 2019-04-21 09:11 | disposition home or self-care (01) ==
LOC: EC 08:02
DX: O9A.211 Injury, poisoning and certain other consequences of external causes complicating pregnancy, first trimester (principal); S06.0X0A Concussion without loss of consciousness, initial encounter; S00.03XA Contusion of scalp, initial encounter; Z88.1 Allergy status to other antibiotic agents; Z3A.01 Less than 8 weeks gestation of pregnancy; W10.9XXA Fall (on) (from) unspecified stairs and steps, initial encounter; Y93.01 Activity, walking, marching and hiking
CPT/HCPCS: 70450; 72125; 99283

== ENCOUNTER 2021-12-03 09:20 | Emergency (ER) | payer OTHER ==
[2021-12-03 09:23] VITALS: TEMP 97.8
[2021-12-03 10:12] LABS: Basophils % (A) 1 %; Eosinophils # (A) 0.2 k/uL (0-0.7); Eosinophils % (A) 3 %; HCT 39.1 % (34.0-46.0); HGB 13.2 gm/dL (11.4-16.0); Lymphocytes # (A) 1.7 k/uL (1.0-4.8); Lymphocytes % (A) 27 %; MCH 30.6 pg (25.0-35.0); MCHC 33.8 g/dL (31.0-37.0); MCV 90.5 fL (80.0-100.0); Mean Platelet Volume 7.3; Monocytes # (A) 0.3 k/uL (0-1.0); Monocytes % (A) 5 %; Neutrophils % (A) 63 %; Platelet Count 209 k/uL (150-450); RBC 4.33 m/uL (3.80-5.40); RDW 12.1 % (11.5-15.5); WBC 6.3 k/uL (3.8-10.6)
--- NOTE | 2021-12-03 10:21 | ED ---
General Adult HPI - General Chief complaint: Vaginal Bleeding Stated complaint: vaginal bleeding Time Seen by Provider: 12/03/21 09:42 Source: patient, RN notes reviewed Mode of arrival: ambulatory Limitations: no limitations - History of Present Illness Initial comments: This a 31-year-old female presents emergency Department with chief complaint of vaginal bleeding. Patient states that she started her normal mental cycle 2 weeks ago. She states that the time was normal she stopped by one week later started having some abdominal cramping has had a diesel bleeding. Patient states she did see her regular physician who had a negative test advised to come the ribs from today and she starts bleeding. She has no weakness dizziness with syncopal episodes states her some mild clots. Patient has no history of control. - Related Data Previous Rx's Medication Instructions Recorded Medroxyprogesterone Acetate 10 mg PO DAILY #5 tablet 12/03/21 Allergies Allergy/AdvReac Type Severity Reaction Status Date / Time erythromycin base AdvReac Nausea & Verified 12/03/21 09:23 Vomiting Review of Systems ROS Statement: Those systems with pertinent positive or pertinent negative responses have been documented in the HPI. ROS Other: All systems not noted in ROS Statement are negative. Past Medical History Past Medical History: No Reported History History of Any Multi-Drug Resistant Organisms: None Reported Past Surgical History: No Surgical Hx Reported Past Anesthesia/Blood Transfusion Reactions: No Reported Reaction Past Psychological History: No Psychological Hx Reported, Anxiety, Depression Smoking Status: Never smoker Past Alcohol Use History: Occasional Past Drug Use History: None Reported - Past Family History Mother Family Medical History: No Reported History General Exam Limitations: no limitations General appearance: alert, in no apparent distress Head exam: Present: atraumatic, normocephalic, normal inspection Eye exam: Present: normal appearance, PERRL, EOMI. Absent: scleral icterus, conjunctival injection, periorbital swelling Respiratory exam: Present: normal lung sounds bilaterally. Absent: respiratory distress, wheezes, rales, rhonchi, stridor Cardiovascular Exam: Present: regular rate, normal rhythm, normal heart sounds. Absent: systolic murmur, diastolic murmur, rubs, gallop, clicks GI/Abdominal exam: Present: soft, normal bowel sounds. Absent: distended, tenderness, guarding, rebound, rigid Course Vital Signs 12/03/21 09:21 Temperature 97.8 F Pulse Rate 77 Respiratory 20 Rate Blood Pressure 136/93 O2 Sat by Pulse 99 Oximetry Medical Decision Making - Medical Decision Making 31-year-old female presented for vaginal bleeding. Patient has dysfunction uterine bleeding, uterine fibroids. Patient will be referred to [facility] return parameters were discussed. Patient's Hemoccult is stable vitals are stable. - Lab Data Result diagrams: 12/03/21 09:51 12/03/21 09:51 Lab Results 12/03/21 12/03/21 12/03/21 Range/Units 09:51 09:51 09:51 WBC 6.3 (3.8-10.6) k/uL RBC 4.33 (3.80-5.40) m/uL Hgb 13.2 (11.4-16.0) gm/dL Hct 39.1 (34.0-46.0) % MCV 90.5 (80.0-100.0) fL MCH 30.6 (25.0-35.0) pg MCHC 33.8 (31.0-37.0) g/dL RDW 12.1 (11.5-15.5) % Plt Count 209 (150-450) k/uL MPV 7.3 Neutrophils % 63 % Lymphocytes % 27 % Monocytes % 5 % Eosinophils % 3 % Basophils % 1 % Neutrophils # 4.0 (1.3-7.7) k/uL Lymphocytes # 1.7 (1.0-4.8) k/uL Monocytes # 0.3 (0-1.0) k/uL Eosinophils # 0.2 (0-0.7) k/uL Basophils # 0.0 (0-0.2) k/uL PT 10.0 (9.0-12.0) sec INR 0.9 (<1.2) APTT 23.8 (22.0-30.0) sec Sodium (137-145) mmol/L Potassium (3.5-5.1) mmol/L Chloride (98-107) mmol/L Carbon Dioxide (22-30) mmol/L Anion Gap mmol/L BUN (7-17) mg/dL Creatinine (0.52-1.04) mg/dL Est GFR (CKD-EPI)AfAm (>60 ml/min/1.73 sqM) Est GFR (CKD-EPI)NonAf (>60 ml/min/1.73 sqM) Glucose (74-99) mg/dL Calcium (8.4-10.2) mg/dL Total Bilirubin (0.2-1.3) mg/dL AST (14-36) U/L ALT (4-34) U/L Alkaline Phosphatase (38-126) U/L Total Protein (6.3-8.2) g/dL Albumin (3.5-5.0) g/dL Urine Color Red Urine Appearance Bloody H (Clear) Urine RBC >182 H (0-5) /hpf Urine WBC 74 H (0-5) /hpf Ur Squamous Epith Cells 44 H (0-4) /hpf Urine Mucus Many H (None) /hpf Urine HCG, Qual (Not Detectd) 12/03/21 12/03/21 Range/Units 09:51 09:51 WBC (3.8-10.6) k/uL RBC (3.80-5.40) m/uL Hgb (11.4-16.0) gm/dL Hct (34.0-46.0) % MCV (80.0-100.0) fL MCH (25.0-35.0) pg MCHC (31.0-37.0) g/dL RDW (11.5-15.5) % Plt Count (150-450) k/uL MPV Neutrophils % % Lymphocytes % % Monocytes % % Eosinophils % % Basophils % % Neutrophils # (1.3-7.7) k/uL Lymphocytes # (1.0-4.8) k/uL Monocytes # (0-1.0) k/uL Eosinophils # (0-0.7) k/uL Basophils # (0-0.2) k/uL PT (9.0-12.0) sec INR (<1.2) APTT (22.0-30.0) sec Sodium 140 (137-145) mmol/L Potassium 4.2 (3.5-5.1) mmol/L Chloride 105 (98-107) mmol/L Carbon Dioxide 26 (22-30) mmol/L Anion Gap 9 mmol/L BUN 16 (7-17) mg/dL Creatinine 0.86 (0.52-1.04) mg/dL Est GFR (CKD-EPI)AfAm >90 (>60 ml/min/1.73 sqM) Est GFR (CKD-EPI)NonAf >90 (>60 ml/min/1.73 sqM) Glucose 89 (74-99) mg/dL Calcium 9.2 (8.4-10.2) mg/dL Total Bilirubin 1.0 (0.2-1.3) mg/dL AST 21 (14-36) U/L ALT 13 (4-34) U/L Alkaline Phosphatase 44 (38-126) U/L Total Protein 7.9 (6.3-8.2) g/dL Albumin 4.7 (3.5-5.0) g/dL Urine Color Urine Appearance (Clear) Urine RBC (0-5) /hpf Urine WBC (0-5) /hpf Ur Squamous Epith Cells (0-4) /hpf Urine Mucus (None) /hpf Urine HCG, Qual Not Detected (Not Detectd) Disposition Clinical Impression: Dysfunctional uterine bleeding, Uterine fibroid Disposition: HOME SELF-CARE Condition: Stable Instructions (If sedation given, give patient instructions): Abnormal (Dysfunctional) Uterine Bleeding (ED) Additional Instructions: Please return to the Emergency Department if symptoms worsen or any other concerns. Prescriptions: Medroxyprogesterone Acetate 10 mg PO DAILY #5 tablet Is patient prescribed a controlled substance at d/c from ED?: No Referrals: Perez Anderson MD [Primary Care Provider] - 1-2 days Cata Wilde DO [Doctor of Osteopathic Medicine] - 1-2 days Time of Disposition: 11:33
[2021-12-03 10:25] LABS: INR 0.9 (<1.2); Partial Thromboplastin Time 23.8 sec (22.0-30.0)
[2021-12-03 10:27] LABS: ALT 13 U/L (4-34); AST 21 U/L (14-36); African American GFR (CKD) >90 (>60 ml/min/1.73 sqM); Albumin 4.7 g/dL (3.5-5.0); Alkaline Phosphatase 44 U/L (38-126); Anion Gap 9 mmol/L; Blood Urea Nitrogen 16 mg/dL (7-17); Calcium 9.2 mg/dL (8.4-10.2); Carbon Dioxide 26 mmol/L (22-30); Chloride 105 mmol/L (98-107); Glucose 89 mg/dL (74-99); Non-African American GFR(CKD) >90 (>60 ml/min/1.73 sqM); Potassium 4.2 mmol/L (3.5-5.1); Sodium 140 mmol/L (137-145); Total Protein 7.9 g/dL (6.3-8.2)
[2021-12-03 10:42] LABS: Mucus,Urine Many /hpf; RBC,Urine >182 /hpf (0-5); Squamous Epithelial Cell,Urine 44 /hpf (0-4); WBC,Urine 74 /hpf (0-5)
[2021-12-03 10:48] LABS: Appearance,Urine Bloody (Clear); Color,Urine Red
--- NOTE | 2021-12-03 11:10 | US ---
EXAMINATION TYPE: US transvaginal DATE OF EXAM: 12/03/2021 COMPARISON: OB US 2017 CLINICAL HISTORY: bleeding. Bleeding. . TECHNIQUE: Transvaginal (TV). Date of LMP: 11/10/2021 EXAM MEASUREMENTS: Uterus: 7.9 x 5.3 x 5.0 cm Endometrial Stripe: 0.48 cm Right Ovary: 3.4 x 2.2 x 2.5 cm Left Ovary: 4.0 x 2.1 x 1.6 cm 1. Uterus: Retroverted Subcentimeter anechoic areas seen in cervix. Appears slightly heterogeneous. 2. Endometrium: Measures 0.48 cm. But is somewhat poorly defined 3. Right Ovary: Appears wnl. 4. Left Ovary: Appears wnl Spectral, color doppler imaging shows arterial and venous flow within the ovaries. 5. Bilateral Adnexa: Prominent vascularity seen within bilateral adnexa. 6. Posterior cul-de-sac: Fluid visualized. IMPRESSION: Nabothian cysts are present within the cervix. Free fluid is noted within the cul-de-sac. There may be underlying fibroid uterus.
[2021-12-03 11:42] VITALS: BP 105/71; PULSE 76; RESP 18
== END 2021-12-03 11:41 | disposition home or self-care (01) ==
LOC: EC 09:20
DX: D25.9 Leiomyoma of uterus, unspecified (principal); N93.8 Other specified abnormal uterine and vaginal bleeding; Z88.1 Allergy status to other antibiotic agents
CPT/HCPCS: 36415; 76830; 80053; 81001; 81025; 85025; 85610; 85730; 87086; 93975; 99284

== ENCOUNTER → 2021-12-06 | Outpatient (CLI) | payer OTHER ==
[2021-12-06 18:29] LABS: Basophils # (A) 0.03 X 10*3/uL (0.00-0.10); Basophils % (A) 0.4 %; Eosinophils # (A) 0.12 X 10*3/uL (0.04-0.35); Eosinophils % (A) 1.7 %; HCT 37.8 % (37.2-46.3); HGB 12.6 g/dL (12.0-15.0); Immature Grans, Automated 0.3 %; Lymphocytes # (A) 1.94 X 10*3/uL (0.90-5.00); Lymphocytes % (A) 27.8 %; MCHC 33.3 g/dL (32.0-37.0); Mean Platelet Volume 10.2 fL (9.5-12.2); Monocytes # (A) 0.47 X 10*3/uL (0.20-1.00); Monocytes % (A) 6.7 %; NRBC Per 100 WBC 0 /100 WBCS (0.0-0.0); Neutrophils # (A) 4.41 X 10*3/uL (1.80-7.70); Neutrophils % (A) 63.1 %; Platelet Count 239 X 10*3/uL (140-440); RDW 11.9 % (11.5-14.5); WBC 6.99 X 10*3/uL (4.50-10.00)
[2021-12-06 18:41] LABS: % Iron Saturation 28.73 (12.00-45.00); Ferritin 50.7 ng/mL (10.0-291.0)
== END | disposition home or self-care (01) ==
LOC: LABWHC1 11:49
PROVIDERS: ATTEND Dermatology Procedural Dermatology
DX: L65.0 Telogen effluvium (principal)
CPT/HCPCS: 36415; 82728; 83540; 83550; 85025

== ENCOUNTER 2022-07-15 09:51 | Emergency (ER) | payer OTHER ==
[2022-07-15 09:57] VITALS: RESP 18
[2022-07-15] MEDS ORDERED: ONDANSETRON ODT 4 MG TAB PO STA (11:46)
--- NOTE | 2022-07-15 11:48 | ED ---
Fever HPI - General Chief Complaint: Fever Stated Complaint: Fever,Body Aches Time Seen by Provider: 07/15/22 10:00 Source: patient, RN notes reviewed Mode of arrival: ambulatory Limitations: no limitations - History of Present Illness Initial Comments: 32-year-old female presented emergency department with chief complaint of fever cough congestion bodyaches nausea vomiting. Patient states symptoms started last couple days. No sick contacts. Patient is 20 weeks with no abdominal complaints. Patient is not taking any further symptoms currently. Patient denies any shortness of breath, chest pain, headache or dizziness - Related Data Previous Rx's Medication Instructions Recorded Medroxyprogesterone Acetate 10 mg PO DAILY #5 tablet 12/03/21 Ondansetron Odt [Zofran Odt] 4 mg PO Q8HR PRN #10 tab 07/15/22 Allergies Allergy/AdvReac Type Severity Reaction Status Date / Time erythromycin base AdvReac Nausea & Verified 07/15/22 09:56 Vomiting Review of Systems ROS Statement: Those systems with pertinent positive or pertinent negative responses have been documented in the HPI. ROS Other: All systems not noted in ROS Statement are negative. Past Medical History Past Medical History: No Reported History History of Any Multi-Drug Resistant Organisms: None Reported Past Surgical History: No Surgical Hx Reported Past Anesthesia/Blood Transfusion Reactions: No Reported Reaction Past Psychological History: No Psychological Hx Reported, Anxiety, Depression Smoking Status: Never smoker Past Alcohol Use History: Occasional Past Drug Use History: None Reported - Past Family History Mother Family Medical History: No Reported History General Exam Limitations: no limitations General appearance: alert, in no apparent distress Head exam: Present: atraumatic, normocephalic, normal inspection Eye exam: Present: normal appearance, PERRL, EOMI. Absent: scleral icterus, conjunctival injection, periorbital swelling ENT exam: Present: normal exam, normal oropharynx, mucous membranes moist Neck exam: Present: normal inspection, full ROM. Absent: tenderness, meningismus, lymphadenopathy Respiratory exam: Present: normal lung sounds bilaterally. Absent: respiratory distress, wheezes, rales, rhonchi, stridor Cardiovascular Exam: Present: regular rate, normal rhythm, normal heart sounds. Absent: systolic murmur, diastolic murmur, rubs, gallop, clicks GI/Abdominal exam: Present: soft, normal bowel sounds. Absent: distended, tenderness, guarding, rebound, rigid Neurological exam: Present: alert Skin exam: Present: warm, dry, intact, normal color. Absent: rash Course Vital Signs 07/15/22 09:53 Temperature 98.7 F Pulse Rate 103 H Respiratory 18 Rate Blood Pressure 106/65 O2 Sat by Pulse 100 Oximetry Medical Decision Making - Medical Decision Making Patient is: 19 positive. Patient discharged in stable condition return parameters were discussed. - Lab Data Lab Results 07/15/22 07/15/22 Range/Units 10:40 10:40 Coronavirus (PCR) Detected A (Not Detectd) Influenza Type A RNA Not Detected (Not Detectd) Influenza Type B (PCR) Not Detected (Not Detectd) Disposition Clinical Impression: COVID-19 Disposition: HOME SELF-CARE Condition: Stable Instructions (If sedation given, give patient instructions): COVID-19 (Coronavirus Disease 2019) (ED) Additional Instructions: Please return to the Emergency Department if symptoms worsen or any other concerns. Prescriptions: Ondansetron Odt [Zofran Odt] 4 mg PO Q8HR PRN #10 tab PRN Reason: Nausea Is patient prescribed a controlled substance at d/c from ED?: No Referrals: Julio De León DO [Primary Care Provider] - 1-2 days Time of Disposition: 11:48
[2022-07-15 12:06] VITALS: BP 132/78; PULSE 80; TEMP 98.6
== END 2022-07-15 12:05 | disposition home or self-care (01) ==
LOC: EC 09:51
DX: O98.512 Other viral diseases complicating pregnancy, second trimester (principal); U07.1 COVID-19; Z3A.20 20 weeks gestation of pregnancy; Z88.1 Allergy status to other antibiotic agents
CPT/HCPCS: 87502; 87635; 99283

== ENCOUNTER 2022-12-02 06:22 | Emergency (ER) | payer OTHER ==
[2022-12-02] MEDS ORDERED: HYDROmorphone 0.5 MG/0.5 ML SYRINGE IVP STA (06:56)
[2022-12-02] MEDS ORDERED: ONDANSETRON 4 MG/2 ML VIAL IVP STA (06:56)
[2022-12-02] MEDS ORDERED: KETOROLAC 15 MG/ML 1 ML VIAL IVP STA (06:56)
[2022-12-02] MEDS ORDERED: SODIUM CHLORIDE 0.9% 1,000 ML IV ONE (06:58)
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
[2022-12-02 07:05] LABS: Basophils % (A) 0 %; Eosinophils # (A) 0.2 k/uL (0-0.7); Eosinophils % (A) 3 %; HCT 33.6 % (34.0-46.0); HGB 11.7 gm/dL (11.4-16.0); Lymphocytes # (A) 1.4 k/uL (1.0-4.8); Lymphocytes % (A) 24 %; MCH 29.1 pg (25.0-35.0); MCHC 34.7 g/dL (31.0-37.0); MCV 83.7 fL (80.0-100.0); Mean Platelet Volume 7.4; Monocytes # (A) 0.1 k/uL (0-1.0); Monocytes % (A) 2 %; Neutrophils % (A) 69 %; Platelet Count 182 k/uL (150-450); RBC 4.01 m/uL (3.80-5.40); RDW 14.1 % (11.5-15.5); WBC 5.7 k/uL (3.8-10.6)
[2022-12-02 07:17] LABS: ALT 38 U/L (4-34); AST 30 U/L (14-36); African American GFR (CKD) >90 (>60 ml/min/1.73 sqM); Albumin 3.9 g/dL (3.5-5.0); Alkaline Phosphatase 60 U/L (38-126); Anion Gap 7 mmol/L; Blood Urea Nitrogen 11 mg/dL (7-17); Calcium 8.6 mg/dL (8.4-10.2); Carbon Dioxide 23 mmol/L (22-30); Chloride 110 mmol/L (98-107); Glucose 92 mg/dL (74-99); Lipase 180 U/L (23-300); Non-African American GFR(CKD) >90 (>60 ml/min/1.73 sqM); Sodium 140 mmol/L (137-145); Total Bilirubin 0.3 mg/dL (0.2-1.3); Total Protein 6.6 g/dL (6.3-8.2)
--- NOTE | 2022-12-02 08:01 | US ---
EXAMINATION TYPE: US transvaginal DATE OF EXAM: 12/02/2022 COMPARISON: NONE CLINICAL INDICATION: Female, 32 years old with history of pain; Severe cramping for 4 hours. Vaginal delivery 8 weeks ago. Intermittent spotting TECHNIQUE: Transvaginal (TV). Date of LMP: unknown EXAM MEASUREMENTS: Uterus: 10.2 x 5.0 x 6.1 cm Endometrial Stripe: 0.3 cm Right Ovary: 4.0 x 3.9 x 2.8 cm Left Ovary: 4.0 x 2.2 x 2.4 cm 1. Uterus: Anteverted increased vascularity 2. Endometrium: appears wnl 3. Right Ovary: cystic area = 3.1 x 2.4 x 2.8cm 4. Left Ovary: follicles noted Spectral, color and waveform doppler imaging shows good arterial and venous flow within the ovaries ; there is no evidence for ovarian torsion. 5. Bilateral Adnexa: prominent vascularity 6. Posterior cul-de-sac: free fluid noted IMPRESSION: Increased vascularity of the uterus, correlate for signs and symptoms of infection. Prophylactic wilber tment for endometritis should be considered. No definitive retained products of conception visualized within the endometrium.
[2022-12-02 08:41] LABS: Appearance,Urine Clear (Clear); Bilirubin,Urine Negative (Negative); Blood,Urine Negative (Negative); Color,Urine Yellow; Glucose,Urine (UA) Negative (Negative); Ketones,Urine Negative (Negative); Leukocyte Esterase,Urine Negative (Negative); Nitrite,Urine Negative (Negative); Protein,Urine Trace (Negative); Specific Gravity,Urine 1.029 (1.001-1.035); Urobilinogen,Urine <2.0 mg/dL (<2.0)
[2022-12-02 09:39] VITALS: BP 106/65; PULSE 79; RESP 18; TEMP 98.2
== END 2022-12-02 09:37 | disposition home or self-care (01) ==
LOC: EC 06:22
DX: N71.9 Inflammatory disease of uterus, unspecified (principal); Z88.1 Allergy status to other antibiotic agents
CPT/HCPCS: 36415; 80053; 83690; 85025; 81003; 81025; 93975; 76830; 99284; 96374; 96375 ×2; 96361; J2405; J1885; J1170

== ENCOUNTER 2023-08-16 04:18 | Observation (INO) | payer OTHER ==
[2023-08-16] MEDS ORDERED: SODIUM CHLORIDE 0.9% 1,000 ML IV STA ×2 (04:48→06:45)
[2023-08-16] MEDS ORDERED: PANTOPRAZOLE 40 MG/10 ML VIAL IVP STA (04:48)
[2023-08-16] MEDS ORDERED: ONDANSETRON 4 MG/2 ML VIAL IVP STA (04:48)
[2023-08-16] MEDS ORDERED: MORPHINE SULFATE 4 MG/ML SYRINGE IVP STA ×2 (04:49→06:10)
[2023-08-16 05:15] LABS: Basophils % (A) 0 %; Eosinophils # (A) 0.3 k/uL (0-0.7); Eosinophils % (A) 2 %; HCT 40.2 % (34.0-46.0); HGB 14.1 gm/dL (11.4-16.0); Lymphocytes # (A) 2.4 k/uL (1.0-4.8); Lymphocytes % (A) 17 %; MCH 30.4 pg (25.0-35.0); MCHC 34.9 g/dL (31.0-37.0); MCV 86.9 fL (80.0-100.0); Mean Platelet Volume 7.3; Monocytes # (A) 0.5 k/uL (0-1.0); Monocytes % (A) 3 %; Neutrophils # (A) 10.8 k/uL (1.3-7.7); Neutrophils % (A) 76 %; Platelet Count 200 k/uL (150-450); RBC 4.63 m/uL (3.80-5.40); RDW 12.3 % (11.5-15.5); WBC 14.3 k/uL (3.8-10.6)
--- NOTE | 2023-08-16 05:21 | ED ---
General Adult HPI - General Chief complaint: Abdominal Pain Stated complaint: ABD PAIN Time Seen by Provider: 08/16/23 04:37 Source: patient, RN notes reviewed, old records reviewed Mode of arrival: ambulatory Limitations: no limitations - History of Present Illness Initial comments: Patient is a 33-year-old female presents emergency Department complaining of abdominal pain. States it somewhat generalized but mostly in the epigastric and right upper quadrant. Endorses nausea with it. Had it this evening and progressively got worse. States she is not expresses pain previously. No history of abdominal surgeries. Is not currently on her period. States she is not . Denies any chest pain or shortness of breath. Denies any cough. No other acute complaints at this time. Primary complaint is the pain. No urinary complaints. No vaginal discharge or bleeding. - Related Data Previous Rx's Medication Instructions Recorded Medroxyprogesterone Acetate 10 mg PO DAILY #5 tablet 12/03/21 Ondansetron Odt [Zofran Odt] 4 mg PO Q8HR PRN #10 tab 07/15/22 Doxycycline [Vibramycin] 100 mg PO BID #20 capsule 12/02/22 metroNIDAZOLE [Flagyl] 500 mg PO TID #30 tab 12/02/22 Allergies Allergy/AdvReac Type Severity Reaction Status Date / Time erythromycin base AdvReac Nausea & Verified 08/16/23 04:23 Vomiting Review of Systems ROS Statement: Those systems with pertinent positive or pertinent negative responses have been documented in the HPI. Review of Systems: CONST: Denies fever EYES: Denies blurry vision ENT: Denies nasal congestion C/V: Denies Chest pain RESP: Denies shortness of breath GI: Endorses abdominal pain : Denies dysuria SKIN: Denies rash. MSK: Denies joint pain. NEURO: Denies headache ROS Other: All systems not noted in ROS Statement are negative. Past Medical History Past Medical History: No Reported History History of Any Multi-Drug Resistant Organisms: None Reported Past Surgical History: No Surgical Hx Reported Past Anesthesia/Blood Transfusion Reactions: No Reported Reaction Past Psychological History: Anxiety, Depression Smoking Status: Never smoker Past Alcohol Use History: Occasional Past Drug Use History: None Reported - Past Family History Mother Family Medical History: No Reported History General Exam - General Exam Comments Initial Comments: General: Appears in mild distress secondary to abdominal pain HEAD: Normal with no signs of head trauma. EYES: PERRLA, EOMI, conjunctiva normal, no discharge. ENT: Hearing grossly intact, normal oropharynx. RESPIRATORY: Clear breath sounds bilaterally. No wheezes, rales, or rhonchi. C/V: Regular rate and rhythm. S1 and S2 auscultated, no edema, peripheral pulses 2+ and intact throughout ABD: Abdomen is soft, nondistended. Tender to palpation epigastric and right upper quadrant. No guarding. No rebound tenderness. No peritoneal signs. No lower abdominal tenderness to palpation. EXT: Normal range of motion, no obvious deformity SKIN: No rashes or lesions observed on exposed skin. NEURO: Alert and oriented 4. Limitations: no limitations Course Vital Signs 08/16/23 08/16/23 08/16/23 04:20 05:00 06:00 Temperature 97.9 F Pulse Rate 87 82 96 Respiratory 18 26 H 22 Rate Blood Pressure 122/81 118/72 123/83 O2 Sat by Pulse 100 100 100 Oximetry Medical Decision Making - Medical Decision Making Was pt. sent in by a medical professional or institution (Dr. PA, UNIVERSAL BANKER, urgent care, hospital, or retirement...) When possible be specific @ -No Did you speak to anyone other than the patient for history (EMS, parent, family, police, friend...)? What history was obtained from this source @ -No Did you review nursing and triage notes (agree or disagree)? Why? @ -I reviewed and agree with nursing and triage notes Were old charts reviewed (outside hosp., previous admission, EMS record, old EKG, old radiological studies, urgent care reports/EKG's, retirement records)? Report findings @ -Old charts reviewed Differential Diagnosis (chest pain, altered mental status, abdominal pain women, abdominal pain men, vaginal bleeding, weakness, fever, dyspnea, syncope, headache, dizziness, GI bleed, back pain, seizure, CVA, palpatations, mental health, musculoskeletal)? @ -Differential Abdominal Pain Women: Appendicitis, Cholecystitis, diverticulosis, ischemic bowel, pancreatitis, hepatitis, UTI, gastroenteritis, AAA, incarcerated hernia, bowel obstruction, constipation, inflammatory bowel, hepatitis, peptic ulcer disease, splenic infarction, perforated viscus, vulvitis, ovarian torsion, PID, kidney stone, placenta abruption, this is not meant to be an all-inclusive list EKG interpreted by me (3pts min.). @ -None done X-rays interpreted by me (1pt min.). @ -None done CT interpreted by me (1pt min.). @ -CT imaging reveals acute appendicitis. U/S interpreted by me (1pt. min.). @ -None done What testing was considered but not performed or refused? (CT, X-rays, U/S, labs)? Why? @ -None What meds were considered but not given or refused? Why? @ -None Did you discuss the management of the patient with other professionals (professionals i.e. DrGeneva, PA, UNIVERSAL BANKER, lab, RT, psych nurse, aids social worker, corncob pipe manufacturing supervisor, teacher, access control officer, child support case officer)? Give summary @ -I spoke with the on-call surgeon, Dr. River who accepted the patient onto his service and was in agreement with the plan. Was smoking cessation discussed for >3mins.? @ -No Was critical care preformed (if so, how long)? @ -No Were there social determinants of health that impacted care today? How? (Homelessness, low income, unemployed, alcoholism, drug addiction, transportation, low edu. Level, literacy, decrease access to med. care, half-way, rehab)? @ -No Was there de-escalation of care discussed even if they declined (Discuss DNR or withdrawal of care, Hospice)? DNR status @ -No What co-morbidities impacted this encounter? (DM, HTN, Smoking, COPD, CAD, Cancer, CVA, ARF, Chemo, Hep., AIDS, mental health diagnosis, sleep apnea, morbid obesity)? @ -None Was patient admitted / discharged? Hospital course, mention meds given and route, prescriptions, significant lab abnormalities, going to OR and other pertinent info. @ -Based on the patient's presentation and physical exam, presents with ab dominal pain. Primarily in the upper quadrants. We'll obtain abdominal laboratory studies as well as CT abdomen and pelvis. Patient agreement with this plan. She'll be symptomatically treated with IV morphine, Zofran, Protonix, fluids. Vital signs are within acceptable limits. Patient's labs are remarkable for leukocytosis of 14. CT imaging reveals acute appendicitis. I did the patient. She was started on Zosyn after blood cultures were obtained. She'll be continued on IV analgesia medications, after morphine does not work we will start her on Dilaudid. She also receive IV fluids. She is made nothing by mouth. I spoke with the on-call surgeon, Dr. River who accepted the patient onto his service and was in agreement with the plan. Undiagnosed new problem with uncertain prognosis? @ -No Drug Therapy requiring intensive monitoring for toxicity (Heparin, Nitro, Insulin, Cardizem)? @ -No Were any procedures done? @ -No Diagnosis/symptom? @ -Appendicitis Acute, or Chronic, or Acute on Chronic? @ -Acute Uncomplicated (without systemic symptoms) or Complicated (systemic symptoms)? @ -Complicated Side effects of treatment? @ -none Exacerbation, Progression, or Severe Exacerbation] @ -no Poses a threat to life or bodily function? @ -Yes - Lab Data Result diagrams: 08/16/23 04:50 08/16/23 04:50 Lab Results 08/16/23 08/16/23 08/16/23 Range/Units 04:50 04:50 04:50 WBC 14.3 H (3.8-10.6) k/uL RBC 4.63 (3.80-5.40) m/uL Hgb 14.1 (11.4-16.0) gm/dL Hct 40.2 (34.0-46.0) % MCV 86.9 (80.0-100.0) fL MCH 30.4 (25.0-35.0) pg MCHC 34.9 (31.0-37.0) g/dL RDW 12.3 (11.5-15.5) % Plt Count 200 (150-450) k/uL MPV 7.3 Neutrophils % 76 % Lymphocytes % 17 % Monocytes % 3 % Eosinophils % 2 % Basophils % 0 % Neutrophils # 10.8 H (1.3-7.7) k/uL Lymphocytes # 2.4 (1.0-4.8) k/uL Monocytes # 0.5 (0-1.0) k/uL Eosinophils # 0.3 (0-0.7) k/uL Basophils # 0.0 (0-0.2) k/uL PT 10.3 (10.0-12.5) sec INR 0.9 (<1.2) APTT 24.5 (22.0-30.0) sec Sodium (137-145) mmol/L Potassium (3.5-5.1) mmol/L Chloride (98-107) mmol/L Carbon Dioxide (22-30) mmol/L Anion Gap mmol/L BUN (7-17) mg/dL Creatinine (0.52-1.04) mg/dL Est GFR (CKD-EPI)AfAm (>60 ml/min/1.73 sqM) Est GFR (CKD-EPI)NonAf (>60 ml/min/1.73 sqM) Glucose (74-99) mg/dL Calcium (8.4-10.2) mg/dL Total Bilirubin (0.2-1.3) mg/dL AST (14-36) U/L ALT (4-34) U/L Alkaline Phosphatase (38-126) U/L Total Protein (6.3-8.2) g/dL Albumin (3.5-5.0) g/dL Amylase (30-110) U/L Lipase (23-300) U/L Urine Color Yellow Urine Appearance Clear (Clear) Urine pH 6.0 (5.0-8.0) Ur Specific [place] 1.031 (1.001-1.035) Urine Protein Negative (Negative) Urine Glucose (UA) Negative (Negative) Urine Ketones Negative (Negative) Urine Blood Large H (Negative) Urine Nitrite Negative (Negative) Urine Bilirubin Negative (Negative) Urine Urobilinogen <2.0 (<2.0) mg/dL Ur Leukocyte Esterase Negative (Negative) Urine RBC 3 (0-5) /hpf Urine WBC 2 (0-5) /hpf Ur Squamous Epith Cells 7 H (0-4) /hpf Urine Mucus Many H (None) /hpf Urine HCG, Qual (Not Detectd) 08/16/23 08/16/23 Range/Units 04:50 04:50 WBC (3.8-10.6) k/uL RBC (3.80-5.40) m/uL Hgb (11.4-16.0) gm/dL Hct (34.0-46.0) % MCV (80.0-100.0) fL MCH (25.0-35.0) pg MCHC (31.0-37.0) g/dL RDW (11.5-15.5) % Plt Count (150-450) k/uL MPV Neutrophils % % Lymphocytes % % Monocytes % % Eosinophils % % Basophils % % Neutrophils # (1.3-7.7) k/uL Lymphocytes # (1.0-4.8) k/uL Monocytes # (0-1.0) k/uL Eosinophils # (0-0.7) k/uL Basophils # (0-0.2) k/uL PT (10.0-12.5) sec INR (<1.2) APTT (22.0-30.0) sec Sodium 141 (137-145) mmol/L Potassium 3.9 (3.5-5.1) mmol/L Chloride 103 (98-107) mmol/L Carbon Dioxide 24 (22-30) mmol/L Anion Gap 14 mmol/L BUN 17 (7-17) mg/dL Creatinine 0.79 (0.52-1.04) mg/dL Est GFR (CKD-EPI)AfAm >90 (>60 ml/min/1.73 sqM) Est GFR (CKD-EPI)NonAf >90 (>60 ml/min/1.73 sqM) Glucose 91 (74-99) mg/dL Calcium 9.5 (8.4-10.2) mg/dL Total Bilirubin 0.5 (0.2-1.3) mg/dL AST 22 (14-36) U/L ALT 14 (4-34) U/L Alkaline Phosphatase 66 (38-126) U/L Total Protein 7.9 (6.3-8.2) g/dL Albumin 4.7 (3.5-5.0) g/dL Amylase 62 (30-110) U/L Lipase 165 (23-300) U/L Urine Color Urine Appearance (Clear) Urine pH (5.0-8.0) Ur Specific [place] (1.001-1.035) Urine Protein (Negative) Urine Glucose (UA) (Negative) Urine Ketones (Negative) Urine Blood (Negative) Urine Nitrite (Negative) Urine Bilirubin (Negative) Urine Urobilinogen (<2.0) mg/dL Ur Leukocyte Esterase (Negative) Urine RBC (0-5) /hpf Urine WBC (0-5) /hpf Ur Squamous Epith Cells (0-4) /hpf Urine Mucus (None) /hpf Urine HCG, Qual Not Detected (Not Detectd) Disposition Clinical Impression: Appendicitis Disposition: ADMITTED IP TO THIS [facility] Condition: Serious Referrals: Julio De León DO [Primary Care Provider] - 1-2 days Time of Disposition: 06:48
[2023-08-16 05:26] LABS: Appearance,Urine Clear (Clear); Bilirubin,Urine Negative (Negative); Blood,Urine Large (Negative); Color,Urine Yellow; Glucose,Urine (UA) Negative (Negative); Ketones,Urine Negative (Negative); Leukocyte Esterase,Urine Negative (Negative); Mucus,Urine Many /hpf; Nitrite,Urine Negative (Negative); Protein,Urine Negative (Negative); RBC,Urine 3 /hpf (0-5); Specific Gravity,Urine 1.031 (1.001-1.035); Squamous Epithelial Cell,Urine 7 /hpf (0-4); Urobilinogen,Urine <2.0 mg/dL (<2.0); WBC,Urine 2 /hpf (0-5)
[2023-08-16 05:30] LABS: INR 0.9 (<1.2); Partial Thromboplastin Time 24.5 sec (22.0-30.0); Prothrombin Time 10.3 sec (10.0-12.5)
[2023-08-16 05:46] LABS: ALT 14 U/L (4-34); AST 22 U/L (14-36); African American GFR (CKD) >90 (>60 ml/min/1.73 sqM); Albumin 4.7 g/dL (3.5-5.0); Alkaline Phosphatase 66 U/L (38-126); Amylase 62 U/L (30-110); Anion Gap 14 mmol/L; Blood Urea Nitrogen 17 mg/dL (7-17); Calcium 9.5 mg/dL (8.4-10.2); Carbon Dioxide 24 mmol/L (22-30); Chloride 103 mmol/L (98-107); Glucose 91 mg/dL (74-99); Lipase 165 U/L (23-300); Non-African American GFR(CKD) >90 (>60 ml/min/1.73 sqM); Potassium 3.9 mmol/L (3.5-5.1); Sodium 141 mmol/L (137-145); Total Bilirubin 0.5 mg/dL (0.2-1.3); Total Protein 7.9 g/dL (6.3-8.2)
--- NOTE | 2023-08-16 06:43 | CT ---
EXAMINATION TYPE: CT abdomen pelvis w con CT DLP: 611.5 mGycm, Automated exposure control for dose reduction was used. DATE OF EXAM: 08/16/2023 6:03 AM COMPARISON: None CLINICAL INDICATION:Female, 33 years old with history of abdominal pain; Patient is having pain above her belly button area. Feels cramping and is constant. TECHNIQUE: Axial CT abdomen pelvis w con;Sagittal and coronal reformats were created on a separate w orkstation. Contrast used:100 mL of Isovue 300 with IV Contrast, (none if empty) Oral contrast used: without Oral Contrast (none if empty) FINDINGS: LOWER CHEST: Unremarkable ABDOMEN LIVER: Unremarkable GALLBLADDER AND BILE DUCTS: Unremarkable. PANCREAS: Unremarkable. SPLEEN: Unremarkable. ADRENAL GLANDS: Unremarkable. KIDNEYS AND URETERS: No evidence of hydronephrosis or renal calculus. The ureters are unremarkable. PELVIS BLADDER: Unremarkable REPRODUCTIVE: Intrauterine device seen within the endometrium. ABDOMEN & PELVIS STOMACH AND BOWEL: The appendix is visualized and dilated and is located just posterior to uterus ser ies 202 image 36 measuring up to 10 mm in width. There is an appendicolith/high density material with in the mid appendix series 202 image 39 measuring 6 mm possibly appendicolith immediately adjacent me asuring 12 mm in length. No evidence of free air or organizing fluid collection. No evidence for carla l obstruction. PERITONEUM /RETROPERITONEUM: No evidence of pneumoperitoneum or free fluid. VASCULATURE: No evidence of aortic aneurysm. MUSCULOSKELETAL: No acute osseous abnormalities LYMPH NODES: No gross evidence for lymphadenopathy. SOFT TISSUE/ABDOMINAL WALL: Unremarkable IMPRESSION: 1. Acute appendicitis with the appendix situated just posterior to the uterus. There is high density material series 201 image 68 likely representing appendicolith. 2. IUD in appropriate position.
[2023-08-16] MEDS ORDERED: MORPHINE SULFATE 4 MG/ML SYRINGE IV PRN (06:49)
[2023-08-16] MEDS ORDERED: NALOXONE 0.4 MG/ML 1 ML VIAL IV PRN (06:49)
[2023-08-16] MEDS ORDERED: ONDANSETRON 4 MG/2 ML VIAL IVP PRN (06:49)
[2023-08-16] MEDS ORDERED: HYDROmorphone 1 MG/ML 1 ML SYRINGE IVP STA (06:52)
[2023-08-16] MEDS: PIPERACILLIN-TAZOBACTAM 3.375 GM in SODIUM CHLORIDE 0.9% 100 ML IVPB SCH ×3 (10:39→22:41)
[2023-08-16] MEDS: HYDROmorphone 1 MG/ML 1 ML SYRINGE IVP PRN ×3 (10:40→20:57)
--- NOTE | 2023-08-16 11:19 | P.GSHP ---
History of Present Illness H&P Date: 08/16/23 Patient is a 33-year-old female with no past medical history presents with an acute onset of right lower quadrant pain. She states that the pain started on 08/15 and had started her on her umbilicus and had gradually migrated to the right lower quadrant. She denies any previous episodes such as this. Admits to subjective fevers and chills. Admits to nausea but no emesis. Mr. flatus but no bowel movement in the past 48 hours. No shortness of breath or chest pain. No prior abdominal operations. No dysuria. Upon presentation to [facility] a CT abdomen pelvis was obtained which showed evidence of acute on perforated appendicitis with appendicolith. - Review of Systems Comment: negative except for as stated above Past Medical History Past Medical History: No Reported History History of Any Multi-Drug Resistant Organisms: None Reported Past Surgical History: No Surgical Hx Reported Past Anesthesia/Blood Transfusion Reactions: No Reported Reaction Past Psychological History: Anxiety, Depression Smoking Status: Never smoker Past Alcohol Use History: Occasional Past Drug Use History: None Reported - Past Family History Mother Family Medical History: No Reported History Medications and Allergies Home Medications Medication Instructions Recorded Confirmed Type No Known Home Medications 08/16/23 08/16/23 History Allergies Allergy/AdvReac Type Severity Reaction Status Date / Time erythromycin base AdvReac Nausea & Verified 08/16/23 11:03 Vomiting Surgical - Exam Vital Signs Temp Pulse Resp BP Pulse Ox 97.9 F 87 18 122/81 100 08/16/23 04:20 08/16/23 04:20 08/16/23 04:20 08/16/23 04:20 08/16/23 04:20 Gen: AxO, NAD Pulm: non-labored respirations Abd: soft, tender in RLQ, minimally distended. Focal guarding in RLQ. Rovsing sign positive Extrem: no edema seen Results - Labs 08/16/23 04:50 08/16/23 04:50 Abnormal Lab Results - Last 24 Hours (Table) 08/16/23 08/16/23 Range/Units 04:50 04:50 WBC 14.3 H (3.8-10.6) k/uL Neutrophils # 10.8 H (1.3-7.7) k/uL Urine Blood Large H (Negative) Ur Squamous Epith Cells 7 H (0-4) /hpf Urine Mucus Many H (None) /hpf Diabetes panel 08/16/23 Range/Units 04:50 Sodium 141 (137-145) mmol/L Potassium 3.9 (3.5-5.1) mmol/L Chloride 103 (98-107) mmol/L Carbon Dioxide 24 (22-30) mmol/L BUN 17 (7-17) mg/dL Creatinine 0.79 (0.52-1.04) mg/dL Glucose 91 (74-99) mg/dL Calcium 9.5 (8.4-10.2) mg/dL AST 22 (14-36) U/L ALT 14 (4-34) U/L Alkaline Phosphatase 66 (38-126) U/L Total Protein 7.9 (6.3-8.2) g/dL Albumin 4.7 (3.5-5.0) g/dL Calcium panel 08/16/23 Range/Units 04:50 Calcium 9.5 (8.4-10.2) mg/dL Albumin 4.7 (3.5-5.0) g/dL Pituitary panel 08/16/23 Range/Units 04:50 Sodium 141 (137-145) mmol/L Potassium 3.9 (3.5-5.1) mmol/L Chloride 103 (98-107) mmol/L Carbon Dioxide 24 (22-30) mmol/L BUN 17 (7-17) mg/dL Creatinine 0.79 (0.52-1.04) mg/dL Glucose 91 (74-99) mg/dL Calcium 9.5 (8.4-10.2) mg/dL Adrenal panel 08/16/23 Range/Units 04:50 Sodium 141 (137-145) mmol/L Potassium 3.9 (3.5-5.1) mmol/L Chloride 103 (98-107) mmol/L Carbon Dioxide 24 (22-30) mmol/L BUN 17 (7-17) mg/dL Creatinine 0.79 (0.52-1.04) mg/dL Glucose 91 (74-99) mg/dL Calcium 9.5 (8.4-10.2) mg/dL Total Bilirubin 0.5 (0.2-1.3) mg/dL AST 22 (14-36) U/L ALT 14 (4-34) U/L Alkaline Phosphatase 66 (38-126) U/L Total Protein 7.9 (6.3-8.2) g/dL Albumin 4.7 (3.5-5.0) g/dL Assessment and Plan Assessment: Patient is a 33-year-old female who presents with acute onset of right lower quadrant pain and CT evidence findings of acute uncomplicated appendicitis Plan: -NPO -IVF hydration -IV abx -PRN pain and nausea control -Plan for Laparoscopic Appendectomy today: 08/16 Andrew Williamson MD General Surgery
[2023-08-16] MEDS ORDERED: LACTATED RINGERS 1,000 ML IV ONE ×2 (16:00→17:00)
[2023-08-16] MEDS ORDERED: ONDANSETRON 4 MG/2 ML VIAL IVP ONE (16:05)
[2023-08-16] MEDS ORDERED: DEXAMETHASONE SOD PHOSPHATE 4 MG/ML 1 ML VIAL IVP ONE (16:05)
[2023-08-16] MEDS ORDERED: FAMOTIDINE 20 MG/2 ML VIAL IVP ONE (16:06)
[2023-08-16] MEDS ORDERED: diphenhydrAMINE 50 MG/ML 1 ML VIAL IVP ONE (16:06)
[2023-08-16] MEDS ORDERED: HYDROmorphone 0.5 MG/0.5 ML SYRINGE IVP ONE (16:06)
[2023-08-16] MEDS ORDERED: PROPOFOL 10 MG/ML 20 ML VIAL IV ONE (16:37)
[2023-08-16] MEDS ORDERED: SUCCINYLCHOLINE CHLORIDE 200 MG/10 ML VIAL IV ONE (16:37)
[2023-08-16] MEDS ORDERED: fentaNYL (PF) 50 MCG/ML 2 ML AMP ONE (16:37)
[2023-08-16] MEDS ORDERED: GLYCOPYRROLATE 0.2 MG/ML 2 ML VIAL ONE (16:37)
[2023-08-16] MEDS ORDERED: LIDOCAINE 1% INJ 10MG/ML (20 ML MDV) ONE (16:37)
[2023-08-16] MEDS ORDERED: NEOSTIGMINE 1 MG/ML 10 ML VIAL ONE (16:37)
[2023-08-16] MEDS ORDERED: LIDOCAINE 1%-EPI 1:100,000 50 ML VIAL SQ ONE ×4 (16:37→17:15)
[2023-08-16] MEDS ORDERED: ROCURONIUM 10 MG/ML (5 ML VIAL) IV ONE (16:37)
[2023-08-17] MEDS: HYDROmorphone 1 MG/ML 1 ML SYRINGE IVP PRN ×2 (03:02→09:14)
--- NOTE | 2023-08-17 07:20 | P.OP ---
Date of Procedure: 08/16/23 Preoperative Diagnosis: acute appendicitis Postoperative Diagnosis: Acute Appendicitis Procedure(s) Performed: Laparoscopic Appendectomy Anesthesia: ALEX Surgeon: Andrew Williamson Estimated Blood Loss (ml): 10 Pathology: other (appendix) Disposition: PACU Indications for Procedure: Patient is a 33 year old female with an acute onset of right lower quadrant pain and CT evidence of acute uncomplicated appendicitis. Patient was seen and evaluated on the floor and laparoscopic appendectomy was offered to the patient. Risks and benefits of laparoscopic appendectomy, possible open, was discussed in detail. Risks including risk of bleeding, infection, iatrogenic injury to adjacent structures, heart attack, stroke and with induction of anesthesia, need to convert to open, perforation. Patient endorsed understanding of the risks and benefits and opted for operative intervention. Informed consent was obtained from the patient prior to procedure. Operative Findings: Acute unperformed appendicitis Description of Procedure: Patient was seen and evaluated in the preoperative area; after all questions and concerns were addressed patient was brought back to the operating room and placed supine with the left arm tucked on the operating room table. After induction of general anesthesia via endotracheal intubation patient abdomen was prepped and draped in sterile fashion. A time out was then performed which confirmed the right patient, right site, right procedure, ASA, fire risk, VTE and prophalatic antibiotic administration, allergies. A supraumbilical midline vertical incision was created with a #11 blade and carried sharply through the dermis and subcutaneous tissues untill the umbilical stalk was encountered. A cordelia clamp was then used the grasp umbilical stalk which was retracted cephalad. Fascia was then sharply incised sharply in Simi technique fashion. Peritoneum was then bluntly entered. 0 Vicryl suture was then used in U-stitch fashion to secure the fascial edges after which 10mm Simi trocar was inserted. Abdomen was then insufflated abdominal exploration was proceeded with. No evidence of iatrogenic injury drink abdominal entry was appreciated. Patient was placed in Trendelenburg position with right side up. 2 additional 5 mm trochars were placed under direct visualization; one in the left lower quadrant as well as one in the suprapubic position. Cecum was rolled out of the paracolic gutter and appendix was visualized. Evidence of acutely inflamed nonperforated dilated appendix was seen. No evidence of localized purulence was seen. Free fluid was appreciated in the pelvis but no purulence was seen. LigaSure device was used to secure the mesoappendix and appendiceal artery within. Dissection was carried towards the base of the appendix which was found to be clear of inflammation. Cecum was inspected and found to be clear of inflammation. Endo SYLVESTER 45 mm blue load stapler was then used to transect the appendix at its insertion into the cecum. Staple line was inspected and found to be intact and hemostatic. Suction manager media relations was used to irrigate and suction the right lower quadrant until clear. Again hemostasis was confirmed. Free fluid in the pelvis was suctioned until clear. Appendix specimen was placed within an Endo Catch bag 5 mm trochars were then moved under direct visualization. Appendix specimen was removed through the Endo Catch bag via the Cagle trocar incision. Additional 0 Vicryl suture was used in [id number] fashion to secure the fascial edges of the Cagle trocar after which previously placed U stitch was tied down for good fascial approximation. Wounds were infiltrated with local anesthetic. Wounds were closed in layers using 4-0 Vicryl suture. Abdomen was cleansed and dried after with sterile skin glue dressing was applied. Patient was subsequently reversed from anesthesia and taken to the recovery room in stable condition. All sponge, needle, instrument counts are correct by the nursing staff at the end of the procedure. Patient tolerated the procedure well. Andrew Williamson MD General Surgery
[2023-08-17 07:55] VITALS: BP 103/62; PULSE 81; RESP 20; TEMP 98.1
[2023-08-17] MEDS: PIPERACILLIN-TAZOBACTAM 3.375 GM in SODIUM CHLORIDE 0.9% 100 ML IVPB SCH (08:02)
[2023-08-17 09:07] LABS: BUN/Creat Ratio 9.12 Ratio (12.00-20.00); Blood Urea Nitrogen 7.3 mg/dL (9.0-27.0); Calcium 8.9 mg/dL (8.7-10.3); Carbon Dioxide 21.6 mmol/L (21.6-31.8); Chloride 106 mmol/L (96-109); Glucose 103 mg/dL (70-110); Potassium 4.2 mmol/L (3.5-5.5); Sodium 138 mmol/L (135-145)
[2023-08-17 09:12] LABS: Basophils # (A) 0.03 X 10*3/uL (0.00-0.10); Basophils % (A) 0.2 %; Eosinophils # (A) 0 X 10*3/uL (0.04-0.35); Eosinophils % (A) 0 %; HCT 35.8 % (37.2-46.3); HGB 11.9 g/dL (12.0-15.0); Lymphocytes # (A) 1.28 X 10*3/uL (0.90-5.00); MCH 29.8 pg (27.0-32.0); MCHC 33.2 g/dL (32.0-37.0); MCV 89.5 FL (80.0-97.0); Mean Platelet Volume 10.6 FL (9.5-12.2); Monocytes # (A) 0.74 X 10*3/uL (0.20-1.00); Monocytes % (A) 5.2 %; NRBC Per 100 WBC 0 X 10*3/uL (0.00-0.01); Neutrophils # (A) 12.17 X 10*3/uL (1.80-7.70); Neutrophils % (A) 85.1 %; Platelet Count 195 X 10*3/uL (140-440); RDW 12.5 % (11.5-14.5); WBC 14.29 X 10*3/uL (4.50-10.00)
--- NOTE | 2023-08-17 12:12 | P.DS ---
Providers Date of admission: 08/16/23 06:49 Expected date of discharge: 08/17/23 Attending physician: [place] Primary care physician: Julio De León DO Hospital Course: Patient was admitted yesterday morning with acute appendicitis. Underwent uneventful laparoscopic appendectomy. Doing well today. She is tolerating regular diet. She would like to go home. Says her pain is much improved. She is afebrile. White blood cell count mildly elevated. No perforation or gangrene on operative findings. Spoke with surgeon and he agrees no antibiotics needed at discharge. Patient Condition at Discharge: Serious Plan - Discharge Summary Discharge Rx Participant: No New Discharge Prescriptions: No Action No Known Home Medications Discharge Medication List No Known Home Medications 08/16/23 [History] Follow up Appointment(s)/Referral(s): Julio De León DO [Primary Care Provider] - 1-2 days
== END 2023-08-17 13:20 | disposition home or self-care (01) ==
LOC: EC 04:18 → INTOOBSV 06:49 → 6NMEDSUR 06:49 → UNDODISIN 08-17 13:20
PROVIDERS: ADMIT Surgery; ATTEND Surgery
DX: K35.80 Unspecified acute appendicitis (principal); F41.9 Anxiety disorder, unspecified; F32.A Depression, unspecified; Z88.1 Allergy status to other antibiotic agents
CPT/HCPCS: 44970; 96376 ×2; 96361; 96374; 96375; 99285; 36415; 81025 ×2; 88304; 80053; 80048; 82150; 83690; 85025 ×2; 85610; 85730; 81001; 87040; 74177; G0378 ×2; J2543 ×2; J0330; J2270; J1200; J1100; J2710; J2405; J2001; J3010; J3490; J1170 ×3; J2704; C9113; Q9967

== ENCOUNTER 2023-09-07 05:04 | Emergency (ER) | payer OTHER ==
[2023-09-07 05:13] VITALS: TEMP 97.9
[2023-09-07] MEDS ORDERED: ONDANSETRON 4 MG/2 ML VIAL IVP STA (06:11)
[2023-09-07] MEDS ORDERED: KETOROLAC 15 MG/ML 1 ML VIAL IVP STA (06:11)
[2023-09-07] MEDS ORDERED: SODIUM CHLORIDE 0.9% 1,000 ML IV STA ×2 (06:11→06:54)
--- NOTE | 2023-09-07 06:30 | ED ---
Abdominal Pain HPI - General Chief Complaint: Urogenital Stated Complaint: Left lower abdomen pain Time Seen by Provider: 09/07/23 06:00 Source: patient, RN notes reviewed Mode of arrival: ambulatory Limitations: no limitations - History of Present Illness Initial Comments: This is a 33 year old female who presents to the emergency department for abdominal pain. States that she was woken up tonight by pain in the left lower quadrant that is radiating to the left mid to lower back. Reports associated nausea. She has had burning with urination for the last couple of weeks and is concerned about a urinary tract infection. She has not been on any treatment for this. Her urine does appear darker and more cloudy than normal. Denies any hx of kidney stones. Also denies any fevers/chills. MD Complaint: abdominal pain - Related Data Previous Rx's Medication Instructions Recorded HYDROcodone/APAP 5-325MG [[place] 1 tab PO Q6HR PRN 3 Days #6 tab 08/17/23 5-325] Ketorolac [Toradol] 10 mg PO Q6HR PRN #15 tab 09/07/23 Ondansetron Odt [Zofran Odt] 4 mg PO Q8HR PRN #10 tab 09/07/23 Phenazopyridine [Pyridium] 200 mg PO TID PRN #9 tablet 09/07/23 cefUROXime axetiL [Ceftin] 500 mg PO BID 7 Days #14 tab 09/07/23 Allergies Allergy/AdvReac Type Severity Reaction Status Date / Time erythromycin base AdvReac Nausea & Verified 09/07/23 05:12 Vomiting Review of Systems ROS Statement: Those systems with pertinent positive or pertinent negative responses have been documented in the HPI. ROS Other: All systems not noted in ROS Statement are negative. Past Medical History Past Medical History: No Reported History History of Any Multi-Drug Resistant Organisms: None Reported Past Surgical History: Appendectomy Past Anesthesia/Blood Transfusion Reactions: No Reported Reaction Past Psychological History: Anxiety, Depression Smoking Status: Never smoker Past Alcohol Use History: Occasional Past Drug Use History: None Reported - Past Family History Mother Family Medical History: No Reported History General Exam Limitations: no limitations General appearance: alert, in no apparent distress Head exam: Present: atraumatic, normocephalic, normal inspection Respiratory exam: Present: normal lung sounds bilaterally. Absent: respiratory distress, wheezes, rales, rhonchi, stridor Cardiovascular Exam: Present: regular rate, normal rhythm, normal heart sounds. Absent: systolic murmur, diastolic murmur, rubs, gallop, clicks GI/Abdominal exam: Present: soft, tenderness (LLQ), normal bowel sounds. Absent: distended Back exam: Present: CVA tenderness (L). Absent: CVA tenderness (R) Neurological exam: Present: alert, oriented X3, CN II-XII intact Psychiatric exam: Present: normal affect, normal mood Skin exam: Present: warm, dry, intact, normal color. Absent: rash Course Vital Signs 09/07/23 09/07/23 09/07/23 05:10 06:23 07:40 Temperature 97.9 F Pulse Rate 96 81 78 Respiratory 20 18 18 Rate Blood Pressure 122/77 111/70 118/73 O2 Sat by Pulse 100 99 98 Oximetry Medical Decision Making - Medical Decision Making This is a 33-year-old female who presents to the emergency department for abdo jimmy pain. Was pt. sent in by a medical professional or institution? @ -No Did you speak to anyone other than the patient for history? @ -No Did you review nursing and triage notes? @ -Yes, and I agree, it is accurate with regards to the patient's symptoms. Were old charts reviewed? @ -No Differential Diagnosis? @ -Differential Abdominal Pain Women: Appendicitis, Cholecystitis, diverticulosis, ischemic bowel, pancreatitis, hepatitis, UTI, gastroenteritis, AAA, incarcerated hernia, bowel obstruction, constipation, inflammatory bowel, hepatitis, peptic ulcer disease, splenic infarction, perforated viscus, vulvitis, ovarian torsion, PID, kidney stone, placenta abruption, this is not meant to be an all-inclusive list EKG interpreted by me (3pts min.)? @ -Not obtained X-rays interpreted by me (1pt min.)? @ -Not obtained CT interpreted by me (1pt min.)? @ -CT scan of the abdomen/pelvis obtained. My interpretation identifies no evidence of a ureteral calculus. U/S interpreted by me (1pt. min.)? @ -Not obtained What testing was considered but not performed? (CT, X-rays, U/S, labs)? Why? @ -None What meds were considered but not given? Why? @ -None Did you discuss the management of the patient with other professionals? @ -No Did you reconcile home meds? @ -No Was smoking cessation discussed for >3mins.? @ -No Was critical care preformed (if so, how long)? @ -No Were there social determinants of health that impacted care today? How? (Homelessness, low income, unemployed, alcoholism, drug addiction, transportation, low edu. Level, literacy, decrease access to med. care, group home, rehab)? @ -No Was there de-escalation of care discussed even if they declined? (Discuss DNR or withdrawal of care, Hospice)? @ -No What co-morbidities impacted this encounter? (DM, HTN, Smoking, COPD, CAD, Cancer, CVA, Hep., AIDS, mental health diagnosis, sleep apnea, morbid obesity)? @ -None Was patient admitted / discharged? @ -Discharged. Lab work obtained and found to be unremarkable. Urinalysis consistent with infection. CT scan of the abdomen and pelvis obtained demo nstrating a small amount of complex free fluid in the cul-de-sac suggestive of a recently ruptured ovarian cyst. Symptoms well controlled in the emergency department and she was given an initial dose of Ceftriaxone. Rx for Ceftin, Toradol, Pyridium, and Zofran provided with dosing instructions reviewed. Patient discharged home in stable condition and advised to follow up with her PCP. Undiagnosed new problem with uncertain prognosis? @ -None Drug Therapy requiring intensive monitoring for toxicity (Heparin, Nitro, Insulin, Cardizem)? @ -None Were any procedures done? @ -None Diagnosis/symptom? @ -UTI, ruptured ovarian cyst Acute, or Chronic, or Acute on Chronic? @ -Acute Uncomplicated (without systemic symptoms) or Complicated (systemic symptoms)? @ -Uncomplicated Side effects of treatment? @ -None Exacerbation, Progression, or Severe Exacerbation] @ -Not applicable Poses a threat to life or bodily function? @ -No Return precautions reviewed in depth, the patient is instructed to return to the emergency department with any new, worsening, or concerning symptoms. Patient verbalized understanding. This case was discussed in detail with the attending ED physician, Dr. Ruiz. Presentation, findings, and treatment plan discussed in detail as well. - Lab Data Result diagrams: 09/07/23 06:23 09/07/23 06:23 Lab Results 09/07/23 09/07/23 09/07/23 Range/Units 06:23 06:23 06:23 WBC 8.8 (3.8-10.6) k/uL RBC 4.30 (3.80-5.40) m/uL Hgb 13.3 (11.4-16.0) gm/dL Hct 38.1 (34.0-46.0) % MCV 88.4 (80.0-100.0) fL MCH 30.8 (25.0-35.0) pg MCHC 34.9 (31.0-37.0) g/dL RDW 12.6 (11.5-15.5) % Plt Count 179 (150-450) k/uL MPV 7.7 Neutrophils % 70 % Lymphocytes % 21 % Monocytes % 5 % Eosinophils % 3 % Basophils % 0 % Neutrophils # 6.2 (1.3-7.7) k/uL Lymphocytes # 1.8 (1.0-4.8) k/uL Monocytes # 0.4 (0-1.0) k/uL Eosinophils # 0.2 (0-0.7) k/uL Basophils # 0.0 (0-0.2) k/uL Sodium 143 (137-145) mmol/L Potassium 3.9 (3.5-5.1) mmol/L Chloride 109 H (98-107) mmol/L Carbon Dioxide 25 (22-30) mmol/L Anion Gap 9 mmol/L BUN 14 (7-17) mg/dL Creatinine 0.67 (0.52-1.04) mg/dL Est GFR (CKD-EPI)AfAm >90 (>60 ml/min/1.73 sqM) Est GFR (CKD-EPI)NonAf >90 (>60 ml/min/1.73 sqM) Glucose 94 (74-99) mg/dL Plasma Lactic Acid Bruce 1.4 (0.7-2.0) mmol/L Calcium 9.2 (8.4-10.2) mg/dL Total Bilirubin 0.4 (0.2-1.3) mg/dL AST 18 (14-36) U/L ALT 12 (4-34) U/L Alkaline Phosphatase 56 (38-126) U/L Total Protein 7.4 (6.3-8.2) g/dL Albumin 4.5 (3.5-5.0) g/dL HCG, Qual Not Detected Urine Color Urine Appearance (Clear) Urine pH (5.0-8.0) Ur Specific [place] (1.001-1.035) Urine Protein (Negative) Urine Glucose (UA) (Negative) Urine Ketones (Negative) Urine Blood (Negative) Urine Nitrite (Negative) Urine Bilirubin (Negative) Urine Urobilinogen (<2.0) mg/dL Ur Leukocyte Esterase (Negative) Urine RBC (0-5) /hpf Urine WBC (0-5) /hpf Ur Squamous Epith Cells (0-4) /hpf Urine Bacteria (None) /hpf Urine Mucus (None) /hpf 09/07/23 Range/Units 06:24 WBC (3.8-10.6) k/uL RBC (3.80-5.40) m/uL Hgb (11.4-16.0) gm/dL Hct (34.0-46.0) % MCV (80.0-100.0) fL MCH (25.0-35.0) pg MCHC (31.0-37.0) g/dL RDW (11.5-15.5) % Plt Count (150-450) k/uL MPV Neutrophils % % Lymphocytes % % Monocytes % % Eosinophils % % Basophils % % Neutrophils # (1.3-7.7) k/uL Lymphocytes # (1.0-4.8) k/uL Monocytes # (0-1.0) k/uL Eosinophils # (0-0.7) k/uL Basophils # (0-0.2) k/uL Sodium (137-145) mmol/L Potassium (3.5-5.1) mmol/L Chloride (98-107) mmol/L Carbon Dioxide (22-30) mmol/L Anion Gap mmol/L BUN (7-17) mg/dL Creatinine (0.52-1.04) mg/dL Est GFR (CKD-EPI)AfAm (>60 ml/min/1.73 sqM) Est GFR (CKD-EPI)NonAf (>60 ml/min/1.73 sqM) Glucose (74-99) mg/dL Plasma Lactic Acid Bruce (0.7-2.0) mmol/L Calcium (8.4-10.2) mg/dL Total Bilirubin (0.2-1.3) mg/dL AST (14-36) U/L ALT (4-34) U/L Alkaline Phosphatase (38-126) U/L Total Protein (6.3-8.2) g/dL Albumin (3.5-5.0) g/dL HCG, Qual Urine Color Light Yellow Urine Appearance Cloudy H (Clear) Urine pH 6.0 (5.0-8.0) Ur Specific [place] 1.029 (1.001-1.035) Urine Protein 1+ H (Negative) Urine Glucose (UA) Negative (Negative) Urine Ketones Negative (Negative) Urine Blood Large H (Negative) Urine Nitrite Positive H (Negative) Urine Bilirubin Negative (Negative) Urine Urobilinogen <2.0 (<2.0) mg/dL Ur Leukocyte Esterase Large H (Negative) Urine RBC 115 H (0-5) /hpf Urine WBC >182 H (0-5) /hpf Ur Squamous Epith Cells 4 (0-4) /hpf Urine Bacteria Few H (None) /hpf Urine Mucus Rare H (None) /hpf - Radiology Data Radiology results: report reviewed, image reviewed Disposition Clinical Impression: UTI (urinary tract infection), Ruptured ovarian cyst Disposition: HOME SELF-CARE Instructions (If sedation given, give patient instructions): Urinary Tract Infection in Women (ED), Ruptured Ovarian Cyst (ED) Additional Instructions: Return to the emergency department with any new, worsening, or concerning symptoms. Take the antibiotic as prescribed for 7 days. Take the Toradol with Tylenol as needed for pain relief. If you choose to take the Toradol, do not take any other anti-inflammatories such as ibuprofen, take one or the other. You can take the Pyridium up to three times daily for burning with urination. Take the Zofran up to every 8 hours as needed for nausea and vomiting. Follow up with your primary care provider in 1-2 days. Prescriptions: cefUROXime axetiL [Ceftin] 500 mg PO BID 7 Days #14 tab Phenazopyridine [Pyridium] 200 mg PO TID PRN #9 tablet PRN Reason: Pain Ketorolac [Toradol] 10 mg PO Q6HR PRN #15 tab PRN Reason: Pain Ondansetron Odt [Zofran Odt] 4 mg PO Q8HR PRN #10 tab PRN Reason: Nausea And Vomiting Is patient prescribed a controlled substance at d/c from ED?: No Referrals: Julio De León DO [Primary Care Provider] - 1-2 days Time of Disposition: 08:20
[2023-09-07 06:35] LABS: Basophils % (A) 0 %; Eosinophils # (A) 0.2 k/uL (0-0.7); Eosinophils % (A) 3 %; HCT 38.1 % (34.0-46.0); HGB 13.3 gm/dL (11.4-16.0); Lymphocytes # (A) 1.8 k/uL (1.0-4.8); Lymphocytes % (A) 21 %; MCH 30.8 pg (25.0-35.0); MCHC 34.9 g/dL (31.0-37.0); MCV 88.4 fL (80.0-100.0); Mean Platelet Volume 7.7; Monocytes # (A) 0.4 k/uL (0-1.0); Monocytes % (A) 5 %; Neutrophils # (A) 6.2 k/uL (1.3-7.7); Neutrophils % (A) 70 %; Platelet Count 179 k/uL (150-450); RDW 12.6 % (11.5-15.5); WBC 8.8 k/uL (3.8-10.6)
[2023-09-07 06:44] LABS: ALT 12 U/L (4-34); AST 18 U/L (14-36); African American GFR (CKD) >90 (>60 ml/min/1.73 sqM); Albumin 4.5 g/dL (3.5-5.0); Alkaline Phosphatase 56 U/L (38-126); Anion Gap 9 mmol/L; Blood Urea Nitrogen 14 mg/dL (7-17); Calcium 9.2 mg/dL (8.4-10.2); Carbon Dioxide 25 mmol/L (22-30); Chloride 109 mmol/L (98-107); Glucose 94 mg/dL (74-99); Non-African American GFR(CKD) >90 (>60 ml/min/1.73 sqM); Potassium 3.9 mmol/L (3.5-5.1); Sodium 143 mmol/L (137-145); Total Bilirubin 0.4 mg/dL (0.2-1.3); Total Protein 7.4 g/dL (6.3-8.2)
[2023-09-07 06:50] VITALS: RESP 18
[2023-09-07] MEDS ORDERED: MORPHINE SULFATE 4 MG/ML SYRINGE IVP STA (06:54)
[2023-09-07 07:03] LABS: HCG,Qualitative Serum Not Detected
[2023-09-07 07:48] LABS: Appearance,Urine Cloudy (Clear); Bacteria,Urine Few /hpf; Bilirubin,Urine Negative (Negative); Blood,Urine Large (Negative); Color,Urine Light Yellow; Glucose,Urine (UA) Negative (Negative); Ketones,Urine Negative (Negative); Leukocyte Esterase,Urine Large (Negative); Mucus,Urine Rare /hpf; Nitrite,Urine Positive (Negative); Protein,Urine 1+ (Negative); RBC,Urine 115 /hpf (0-5); Specific Gravity,Urine 1.029 (1.001-1.035); Squamous Epithelial Cell,Urine 4 /hpf (0-4); Urobilinogen,Urine <2.0 mg/dL (<2.0); WBC,Urine >182 /hpf (0-5)
--- NOTE | 2023-09-07 07:51 | CT ---
EXAMINATION TYPE: CT abdomen pelvis w con DATE OF EXAM: 09/07/2023 COMPARISON: 08/16/2023 HISTORY: abd pain CT DLP: 561.5 mGycm Automated exposure control for dose reduction was used. TECHNIQUE: Helical acquisition of images was performed from the lung bases through the pelvis. CONTRAST: Performed without Oral Contrast and with IV Contrast, patient injected with 100 mL of Isovue 370. FINDINGS: Visualized lung bases are clear. The gallbladder and biliary tree are normal. There is no focal mass or organomegaly involving the liver, pancreas, spleen or adrenal glands. There is no solid renal mass or hydronephrosis. Caliber of the abdominal aorta is normal. The bowel loops are normal in caliber. No dilatation or obstruction. No inflammatory changes identifi ed in the bowel mesentery and there is no free intraperitoneal air. The appendix is not visualized and presumably has been surgically removed given the history of prior appendicitis from the study of 08/16/2023. There is an IUD within the uterus. There is been development of a small amount of free fluid in the cul-de-sac and there are a few stran ds of increased density possibly indicating a component of mild hemorrhage. Findings raise the questi on of a ruptured ovarian cyst clinical information is recommended. There is no pelvic adenopathy. The osseous structures are intact. IMPRESSION: 1. Apparent surgical absence of the appendix. History of acute appendicitis on the prior study dated 08/16/2023. 2. Development of small amount of mildly complex free fluid within the cul-de-sac raising the questio n of ruptured ovarian cyst. Clinical correlation recommended. 3. No acute bowel or mesenteric abnormality.
[2023-09-07] MEDS ORDERED: cefTRIAXone IN SWFI 1,000 MG/10 ML SYRINGE IVP STA (07:59)
[2023-09-07 08:00] VITALS: BP 118/73; PULSE 78
[2023-09-07] MEDS ORDERED: traMADol 50 MG STARTER PACK 3 TAB BTL PO STA (08:28)
== END 2023-09-07 08:52 | disposition home or self-care (01) ==
LOC: EC 05:04
DX: N39.0 Urinary tract infection, site not specified (principal); N83.202 Unspecified ovarian cyst, left side; Z86.59 Personal history of other mental and behavioral disorders; Z88.8 Allergy status to other drugs, medicaments and biological substances
CPT/HCPCS: 36415; 80053; 83605; 85025; 81001; 84703; 87086; 74177; 99284; 96374; 96375 ×3; 96361 ×2; J2270; J2405; J0696; J1885; Q9967

== ENCOUNTER 2024-05-01 05:19 | Emergency (ER) | payer OTHER ==
[2024-05-01 05:23] VITALS: RESP 18
--- NOTE | 2024-05-01 06:33 | ED ---
URI HPI - General Chief Complaint: Upper Respiratory Infection Stated Complaint: SEPIDEH Time Seen by Provider: 05/01/24 06:00 Source: patient, RN notes reviewed Mode of arrival: ambulatory Limitations: no limitations - History of Present Illness Initial Comments: This is a 33-year-old female who presents to the emergency department for URI symptoms. States that starting yesterday morning she has felt congested, short of breath, has been coughing, and nauseous. Denies any sick contacts. She has not measured fevers or chills. Denies any history of asthma or other respiratory illnesses. Patient states that she overall feels "terrible". She tried taking [id number] TheraFlu without much relief in symptoms. MD Complaint: cough, sore throat, nasal congestion - Related Data Previous Rx's Medication Instructions Recorded HYDROcodone/APAP 5-325MG [[place] 1 tab PO Q6HR PRN 3 Days #6 tab 08/17/23 5-325] Ketorolac [Toradol] 10 mg PO Q6HR PRN #15 tab 09/07/23 Ondansetron Odt [Zofran Odt] 4 mg PO Q8HR PRN #10 tab 09/07/23 Phenazopyridine [Pyridium] 200 mg PO TID PRN #9 tablet 09/07/23 cefUROXime axetiL [Ceftin] 500 mg PO BID 7 Days #14 tab 09/07/23 Benzonatate [Tessalon Perle] 200 mg PO TID PRN #30 capsule 05/01/24 Meloxicam [Mobic] 15 mg PO DAILY PRN #15 tab 05/01/24 Nirmatrelvir/Ritonavir [Paxlovid 1 pack PO BID 5 Days #30 tab 05/01/24 300-100 mg Dose Pack] Ondansetron Odt [Zofran Odt] 4 mg PO Q8HR PRN #15 tab 05/01/24 Allergies Allergy/AdvReac Type Severity Reaction Status Date / Time erythromycin base AdvReac Nausea & Verified 05/01/24 05:23 Vomiting Review of Systems ROS Statement: Those systems with pertinent positive or pertinent negative responses have been documented in the HPI. ROS Other: All systems not noted in ROS Statement are negative. Past Medical History Past Medical History: No Reported History History of Any Multi-Drug Resistant Organisms: None Reported Past Surgical History: Appendectomy Past Anesthesia/Blood Transfusion Reactions: No Reported Reaction Past Psychological History: Anxiety, Depression Smoking Status: Never smoker Past Alcohol Use History: Occasional Past Drug Use History: None Reported - Past Family History Mother Family Medical History: No Reported History General Exam Limitations: no limitations General appearance: alert, in no apparent distress Head exam: Present: atraumatic, normocephalic, normal inspection Neck exam: Present: normal inspection. Absent: tenderness, meningismus, lymphadenopathy Respiratory exam: Present: normal lung sounds bilaterally. Absent: respiratory distress, wheezes, rales, rhonchi, stridor Cardiovascular Exam: Present: regular rate, normal rhythm, normal heart sounds. Absent: systolic murmur, diastolic murmur, rubs, gallop, clicks Neurological exam: Present: alert, oriented X3, CN II-XII intact Psychiatric exam: Present: normal affect, normal mood Skin exam: Present: warm, dry, intact, normal color. Absent: rash Course Vital Signs 05/01/24 05/01/24 05/01/24 05:20 07:18 07:42 Temperature 98 F 98.2 F 98.6 F Pulse Rate 81 86 82 Respiratory 18 18 18 Rate Blood Pressure 135/88 97/64 101/68 O2 Sat by Pulse 100 100 99 Oximetry Medical Decision Making - Medical Decision Making This is a 33-year-old female who presents to the emergency department for coughing and congestion. Was pt. sent in by a medical professional or institution? @ -No Did you speak to anyone other than the patient for history? @ -No Did you review nursing and triage notes? @ -Yes, and I agree, it is accurate with regards to the patient's symptoms. Were old charts reviewed? @ -No Differential Diagnosis? @ -Differential Cough: Influenza, Covid, RSV, croup, allergic rhinitis, GERD, pneumonia, bronchitis, COPD, viral pharyngitis, streptococcal pharyngitis, this is not meant to be an all-inclusive list. EKG interpreted by me (3pts min.)? @ -Not obtained X-rays interpreted by me (1pt min.)? @ -Chest x-ray obtained, my interpretation identifies no localized consolidations or infiltrates. CT interpreted by me (1pt min.)? @ -Not obtained U/S interpreted by me (1pt. min.)? @ -Not obtained What testing was considered but not performed? (CT, X-rays, U/S, labs)? Why? @ -None What meds were considered but not given? Why? @ -None Did you discuss the management of the patient with other professionals? @ -No Did you reconcile home meds? @ -No Was smoking cessation discussed for >3mins.? @ -No Was critical care preformed (if so, how long)? @ -No Were there social determinants of health that impacted care today? How? (Ho melessness, low income, unemployed, alcoholism, drug addiction, transportation, low edu. Level, literacy, decrease access to med. care, intermediate, rehab)? @ -No Was there de-escalation of care discussed even if they declined? (Discuss DNR or withdrawal of care, Hospice)? @ -No What co-morbidities impacted this encounter? (DM, HTN, Smoking, COPD, CAD, Cancer, CVA, Hep., AIDS, mental health diagnosis, sleep apnea, morbid obesity)? @ -None Was patient admitted / discharged? @ -Discharged. Patient positive for COVID-19. Influenza and RSV testing negative. Rapid strep test negative. Chest x-ray reveals no acute process. Patient treated with IV fluids, Toradol, Decadron, and Zofran with improvement in symptoms. We discussed the option of Paxlovid, and patient requested to proceed. Prescription for Paxlovid prescribed along with meloxicam, Tessalon Perles, and Zofran for symptomatic management. Patient discharged home in stable condition. Advised drinking plenty of fluids and getting plenty of rest. Case discussed with ED attending Dr. Atkins. Return precautions reviewed in depth, the patient is instructed to return to the emergency department with any new, worsening, or concerning symptoms. Patient verbalized understanding. Undiagnosed new problem with uncertain prognosis? @ -None Drug Therapy requiring intensive monitoring for toxicity (Heparin, Nitro, Insulin, Cardizem)? @ -None Were any procedures done? @ -None Diagnosis/symptom? @ -COVID-19 Acute, or Chronic, or Acute on Chronic? @ -Acute Uncomplicated (without systemic symptoms) or Complicated (systemic symptoms)? @ -Complicated Side effects of treatment? @ -None Exacerbation, Progression, or Severe Exacerbation] @ -Not applicable Poses a threat to life or bodily function? @ -No - Lab Data Lab Results 05/01/24 05/01/24 Range/Units 05:24 06:31 Influenza Type A (PCR) Not Detected (Not Detectd) Influenza Type B (PCR) Not Detected (Not Detectd) RSV (PCR) Not Detected (Not Detectd) SARS-CoV-2 (PCR) Detected A (Not Detectd) Group A Strep (PCR) NOT DETECTED (Not Detectd) - Radiology Data Radiology results: report reviewed, image reviewed Disposition Clinical Impression: COVID-19 Disposition: HOME SELF-CARE Instructions (If sedation given, give patient instructions): Coronavirus Disease 2019 (COVID-19), COVID-19 (Coronavirus Disease 2019) (ED) Additional Instructions: Return to the emergency department with any new, worsening, or concerning symptoms. Take the Paxlovid as prescribed for 5 days. You can take the meloxicam once daily to help with discomfort. You may take this with Tylenol, try to avoid taking it with other anti-inflammatories such as ibuprofen. Take the Zofran up to every 8 hours as needed for nausea and vomiting. Take the Tessalon Perles up to every 8 hours as needed for coughing. Make sure you get plenty of rest and remain well-hydrated. Prescriptions: Meloxicam [Mobic] 15 mg PO DAILY PRN #15 tab PRN Reason: Pain Nirmatrelvir/Ritonavir [Paxlovid 300-100 mg Dose Pack] 1 pack PO BID 5 Days #30 tab Benzonatate [Tessalon Perle] 200 mg PO TID PRN #30 capsule PRN Reason: Cough Ondansetron Odt [Zofran Odt] 4 mg PO Q8HR PRN #15 tab PRN Reason: Nausea And Vomiting Is patient prescribed a controlled substance at d/c from ED?: No Referrals: Julio De León DO [Primary Care Provider] - 1-2 days Time of Disposition: 07:21
[2024-05-01] MEDS: SODIUM CHLORIDE 0.9% 1,000 ML IV STA (06:36)
[2024-05-01] MEDS: OXYMETAZOLINE 0.05% NASL SPRAY 1 SPRAY BOTTLE NASAL STA (06:36)
[2024-05-01] MEDS: ONDANSETRON 4 MG/2 ML VIAL IVP STA (06:37)
[2024-05-01] MEDS: DEXAMETHASONE SOD PHOSPHATE 10 MG/ML 1 ML VIAL IVP STA (06:37)
[2024-05-01] MEDS: KETOROLAC 15 MG/ML 1 ML VIAL IVP STA (06:38)
--- NOTE | 2024-05-01 07:04 | XR ---
EXAMINATION TYPE: XR chest 2V DATE OF EXAM: 05/01/2024 6:19 AM CLINICAL INDICATION: Female, 33 years old with history of Cough, SEPIDEH; [facility] COMPARISON: None TECHNIQUE: XR chest 2V Frontal view of the chest. FINDINGS: Lungs/Pleura: There is no evidence of pleural effusion, focal consolidation, or pneumothorax. Pulmonary vascularity: Unremarkable. Heart/mediastinum: Cardiomediastinal silhouette is unremarkable. Musculoskeletal: No acute osseous pathology. IMPRESSION: No acute cardiopulmonary disease/process.
[2024-05-01 07:44] VITALS: BP 101/68; PULSE 82; TEMP 98.6
== END 2024-05-01 07:42 | disposition home or self-care (01) ==
LOC: EC 05:19
DX: R06.00 Dyspnea, unspecified
CPT/HCPCS: 71046; 87636; 87651; 96361; 96374; 96375; 99284